=== PATIENT | male | born 1960 | race Caucasian/White ===

== ENCOUNTER 2019-06-26 09:23 | Inpatient (IN) | payer BC ==
[~2019-06-26] VITALS: Ht 181.6 cm; Wt 103.0 kg
[2019-06-26] VITALS (11 sets, daily range): BP systolic 116–133; BP diastolic 79–89
[~2019-06-26 09:23] MED LIST: AMLO5TAB10 PO; ASPI81TA50 PO; ATOR20TA58 PO; CETI10TA24 PO; CHOL40003 PO; CINN500C2 PO; CYAN25008 PO; DOCU100C28 PO; ESCITALOPRAM OX10 MG PO; FLUT9.9S NS; HYDROmorphone 2 MG/ML VIAL IV PRN; IV RINGERS,LACTATED 1000ML 1,000 ML IV SCH; L.AC1CAP6 PO; LIDOCAINE 1% PF 2 ML VIAL. ID PRN; LOSA1TAB22 PO; MAGN250T9 PO; METF500T16 PO; MORPHINE SULFATE 2 MG/ML VIAL. IV PRN; MULT-121 PO; OMEG100020 PO; OMEP20TA8 PO; ONDA4TAB12 PO; ONDANSETRON PF 4 MG/2 ML VIAL. IV PRN; PROCHLORPERAZINE 10 MG/2 ML VIAL. IV PRN; TRAZ-118 PO; cefOXitin SODIUM IV Push 2 GM VIAL. IVP ONE; fentaNYL PF VIAL 100 MCG/2 ML VIAL IV PRN
[2019-06-26] MEDS ORDERED: BUPIVACAINE-EPI 0.5%-1:200000 MPF 30 ML VIAL. ONE (10:38)
[2019-06-26 10:53] LABS: ALBUMIN 3.6 g/dL (3.4-5.0); ALBUMIN/GLOBULIN RATIO 1.1 (1.0-1.7); CALCIUM 8.7 mg/dL (8.5-10.1); CREATININE 0.7 mg/dL (0.7-1.3); GFR 116.7; POTASSIUM 3.5 mmol/L (3.5-5.1); TOTAL BILIRUBIN 0.4 mg/dL (0.2-1.0); TOTAL PROTEIN 6.9 g/dL (6.4-8.2)
[2019-06-26 11:03] LABS: BASO % 1 % (0-3); EOS # 0.1 x10^3/uL (0.0-0.7); EOS % 1 % (0-3); HEMATOCRIT 35.6 % (39.0-53.0); LYMPH # 1.4 x10^3/uL (1.0-4.8); LYMPH % 32 % (24-48); MEAN CORPUSCULAR HEMOGLOBIN 24 pg (25-35); MEAN CORPUSCULAR HGB CONC 31 g/dL (31-37); MEAN CORPUSCULAR VOLUME 76 fL (79-100); MONO # 0.5 x10^3/uL (0.0-1.1); MONO % 12 % (0-9); NEUT # 2.3 x10^3/uL (1.8-7.7); NEUT % 53 % (31-73); PLATELET COUNT 303 x10^3/uL (140-400); RED BLOOD COUNT 4.67 x10^6/uL (4.30-5.70); RED CELL DISTRIBUTION WIDTH 30.9 % (11.5-14.5); WHITE BLOOD COUNT 4.3 x10^3/uL (4.0-11.0)
--- NOTE | 2019-06-26 11:16 | PDOC ---
SURGICAL PROGRESS NOTE Subjective Pre-Op Note 58 yo M with suspected small bowel mass. TO OR for laparoscopic versus open small bowel resection. R/R/B/A d/w pt and pt's supportive family. Risks, including, but not limited to: bleeding, infection, damage to surrounding structures, risk of anesthesia, risk of open, risk of , risk of anastomotic leak. They appear to understand, their questions are answered and they elect to proceed. Office note H&P reviewed and unchanged. Vital Signs Vital Signs Date Time Temp Pulse Resp B/P (MAP) Pulse Ox O2 Delivery O2 Flow Rate FiO2 06/26/19 10:28 97.2 65 18 130/72 98 Room Air 97.2 Labs Laboratory Tests Test 06/26/19 10:20 06/26/19 10:32 06/26/19 10:40 White Blood Count 4.3 x10^3/uL (4.0-11.0) Red Blood Count 4.67 x10^6/uL (4.30-5.70) Hemoglobin 11.0 g/dL (13.0-17.5) Hematocrit 35.6 % (39.0-53.0) Mean Corpuscular Volume 76 fL (79-100) Mean Corpuscular Hemoglobin 24 pg (25-35) Mean Corpuscular Hemoglobin Concent 31 g/dL (31-37) Red Cell Distribution Width 30.9 % (11.5-14.5) Platelet Count 303 x10^3/uL (140-400) Neutrophils (%) (Auto) 53 % (31-73) Lymphocytes (%) (Auto) 32 % (24-48) Monocytes (%) (Auto) 12 % (0-9) Eosinophils (%) (Auto) 1 % (0-3) Basophils (%) (Auto) 1 % (0-3) Neutrophils # (Auto) 2.3 x10^3/uL (1.8-7.7) Lymphocytes # (Auto) 1.4 x10^3/uL (1.0-4.8) Monocytes # (Auto) 0.5 x10^3/uL (0.0-1.1) Eosinophils # (Auto) 0.1 x10^3/uL (0.0-0.7) Basophils # (Auto) 0.0 x10^3/uL (0.0-0.2) Glucose (Fingerstick) 101 mg/dL (70-99) Sodium Level 136 mmol/L (136-145) Potassium Level 3.5 mmol/L (3.5-5.1) Chloride Level 101 mmol/L (98-107) Carbon Dioxide Level 27 mmol/L (21-32) Anion Gap 8 (6-14) Blood Urea Nitrogen 13 mg/dL (8-26) Creatinine 0.7 mg/dL (0.7-1.3) Estimated GFR (Cockcroft-Gault) 116.7 BUN/Creatinine Ratio 19 (6-20) Glucose Level 106 mg/dL (70-99) Calcium Level 8.7 mg/dL (8.5-10.1) Total Bilirubin 0.4 mg/dL (0.2-1.0) Aspartate Amino Transf (AST/SGOT) 15 U/L (15-37) Alanine Aminotransferase (ALT/SGPT) 25 U/L (16-63) Alkaline Phosphatase 77 U/L (46-116) Total Protein 6.9 g/dL (6.4-8.2) Albumin 3.6 g/dL (3.4-5.0) Albumin/Globulin Ratio 1.1 (1.0-1.7) Laboratory Tests Test 06/26/19 10:20 06/26/19 10:32 06/26/19 10:40 White Blood Count 4.3 x10^3/uL (4.0-11.0) Red Blood Count 4.67 x10^6/uL (4.30-5.70) Hemoglobin 11.0 g/dL (13.0-17.5) Hematocrit 35.6 % (39.0-53.0) Mean Corpuscular Volume 76 fL (79-100) Mean Corpuscular Hemoglobin 24 pg (25-35) Mean Corpuscular Hemoglobin Concent 31 g/dL (31-37) Red Cell Distribution Width 30.9 % (11.5-14.5) Platelet Count 303 x10^3/uL (140-400) Neutrophils (%) (Auto) 53 % (31-73) Lymphocytes (%) (Auto) 32 % (24-48) Monocytes (%) (Auto) 12 % (0-9) Eosinophils (%) (Auto) 1 % (0-3) Basophils (%) (Auto) 1 % (0-3) Neutrophils # (Auto) 2.3 x10^3/uL (1.8-7.7) Lymphocytes # (Auto) 1.4 x10^3/uL (1.0-4.8) Monocytes # (Auto) 0.5 x10^3/uL (0.0-1.1) Eosinophils # (Auto) 0.1 x10^3/uL (0.0-0.7) Basophils # (Auto) 0.0 x10^3/uL (0.0-0.2) Glucose (Fingerstick) 101 mg/dL (70-99) Sodium Level 136 mmol/L (136-145) Potassium Level 3.5 mmol/L (3.5-5.1) Chloride Level 101 mmol/L (98-107) Carbon Dioxide Level 27 mmol/L (21-32) Anion Gap 8 (6-14) Blood Urea Nitrogen 13 mg/dL (8-26) Creatinine 0.7 mg/dL (0.7-1.3) Estimated GFR (Cockcroft-Gault) 116.7 BUN/Creatinine Ratio 19 (6-20) Glucose Level 106 mg/dL (70-99) Calcium Level 8.7 mg/dL (8.5-10.1) Total Bilirubin 0.4 mg/dL (0.2-1.0) Aspartate Amino Transf (AST/SGOT) 15 U/L (15-37) Alanine Aminotransferase (ALT/SGPT) 25 U/L (16-63) Alkaline Phosphatase 77 U/L (46-116) Total Protein 6.9 g/dL (6.4-8.2) Albumin 3.6 g/dL (3.4-5.0) Albumin/Globulin Ratio 1.1 (1.0-1.7) GAVIN SCALES MD Jun 26, 2019 11:16
[2019-06-26] MEDS ORDERED: ROCURONIUM 50 MG/5 ML VIAL. ONE (11:25)
[2019-06-26] MEDS ORDERED: fentaNYL PF VIAL 100 MCG/2 ML VIAL ONE ×2 (11:25→13:20)
[2019-06-26] MEDS ORDERED: LIDOCAINE 2% PF 5 ML VIAL. ONE (11:26)
[2019-06-26] MEDS ORDERED: ONDANSETRON PF 4 MG/2 ML VIAL. ONE (11:26)
[2019-06-26] MEDS ORDERED: DEXAMETHASONE SOD PHOS 4 MG/ML VIAL ONE (11:26)
[2019-06-26] MEDS ORDERED: PROPOFOL 20 ML IV ONE (11:26)
[2019-06-26] MEDS ORDERED: FAMOTIDINE 20 MG/2 ML VIAL ONE (11:26)
[2019-06-26] MEDS ORDERED: LIDOCAINE 2% TOPICAL JELLY 5GM TUBE. TP ONE ×2 (11:29→13:25)
[2019-06-26] MEDS ORDERED: INSULIN LISPRO 100 UNIT/ML 3ML VIAL for OP,RR ONLY. SQ PRN (11:45)
[2019-06-26] MEDS ORDERED: ePHEDrine PF IN SALINE 50 MG/10 ML SYRINGE. IV ONE (11:51)
[2019-06-26] MEDS ORDERED: DEXAMETHASONE SOD PHOS 20 MG/5 ML VIAL. ONE (12:21)
[2019-06-26] MEDS ORDERED: EPINEPHrine 1 MG/ML VIAL ONE (12:22)
[2019-06-26] MEDS ORDERED: BUPIVACAINE MPF 0.5% 30 ML VIAL. ONE (12:22)
[2019-06-26] MEDS ORDERED: GLYCOPYRROLATE 1 MG/5 ML VIAL. ONE (12:46)
[2019-06-26] MEDS ORDERED: NEOSTIGMINE METHYLSULFATE 5 MG/5 ML SYRINGE. ONE (12:46)
[2019-06-26] MEDS ORDERED: 0.9 % SODIUM CHLORIDE 10 ML DISP.SYRIN. IV PRN (13:00)
[2019-06-26] MEDS: IV NORMAL SALINE 1000ML BAG 1,000 ML IV SCH (13:00)
[2019-06-26] MEDS ORDERED: NALOXONE 0.4 MG/ML VIAL. IV PRN (13:00)
[2019-06-26] MEDS ORDERED: SEVOFLURANE 61 TO 120 MINUTES. IH ONE (13:12)
--- NOTE | 2019-06-26 13:12 | PDOC4 ---
OPERATIVE NOTE Date: Date: Jun 26, 2019 Pre-Op Diagnosis: Small bowel obstruction Post-Op Diagnosis: same, small bowel stricture x 2, favor crohn's Procedure Performed: laparoscopic assisted small bowel resection, appendectomy Surgeon: Enoch Scales Anesthesia Type: GETA plus local Blood Loss: 50 Specimans Obtained: small bowel segment, appendix Findings: dilated proximal small bowel, decompressed distal, normal liver, small palpable stricture of mid distal small bowel, inflammatory changes in 2 locations of small bowel. Complications: none Operative Note: After obtaining informed consent, patient was taken to OR, induced under GETA and prepped in the usual fashion. 5 mm port placed RUQ and RLQ, all under laparoscopic guidance. Abdominal cavity was explored and essentially unremarkable, except as noted above and obesity. Small bowel was visualized, but no obvious mass. Given this, an upper midline incision was made with cautery, wound protector placed and small bowel examined from ligament of treitz to terminal ileum. Two small strictured areas were noted in mid distal small bowel. NOE staplers were used to divide bowel proximal and distal to areas of concerns. Mesentery taken with ligasure. Side to side stapled anastomosis cr eated with NOE 75 and TA staplers. Oversewn with 3 0 vicryl and mesentery repaired with 3 0 chromic. Anastomosis noted to be patent, under no tension, completely viable and without evidence of leakage. Pathology was concerning, grossly, for inflammatory changes. Given concern for crohn's, the appendix was resected. Appendix grossly normal, but did have some chronic inflammatory changes around it. NOE was used to divide at base. Mesentery taken with ligasure. Appendix sent to pathology for evaluation. Fascia repaired with 0 vicryl and 0 looped PDS. Pneumoperitoneum reestablished and demonstrated no pathology. Copious irrigation. Ports removed without bleeding. Skin repaired with 3 0 vicryl and 4 0 monocryl. [place] left in midline wound. Dressing placed. Patient tolerated procedure well and sent to PACU in stable condition. All counts correct. Wound class is 2. GAVIN SCALES MD Jun 26, 2019 13:12
[2019-06-26] MEDS ORDERED: PROCHLORPERAZINE 10 MG/2 ML VIAL. ONE (13:20)
[2019-06-26] MEDS: IV RINGERS,LACTATED 1000ML 1,000 ML IV SCH ×2 (13:47→23:37)
[2019-06-26] MEDS: fentaNYL PF VIAL 100 MCG/2 ML VIAL IV PRN ×2 (13:56→14:17)
[2019-06-26] MEDS: MORPHINE SULFATE/PF 30 ML IV PRN (14:01)
--- NOTE | 2019-06-26 16:41 | NUR ---
received from recovery; drowsy was rating his pain 4-5 reinforced usage of film waxer and at bedside. winkler cath patent to dd patent with dariel/straw colored urine. ng to low intermittent suction patent with minimal brown . dressing to abdominal area is clean and dry. shadowed at the top of incisional area. history completed. may have ice chips
[2019-06-26 16:54] LABS: ANISOCYTOSIS MARKED; HYPOCHROMIA MOD; OVALOCYTES FEW; PLT ESTIMATE ADEQUATE (ADEQUATE); POLYCHROMASIA SLIGHT; TEAR DROP CELLS FEW
[2019-06-26] MEDS ORDERED: DEXTROSE 50% 25 GM / 50ML DISP.SYRIN. IV PRN (18:15)
--- NOTE | 2019-06-26 18:34 | NUR ---
DANGLED AND STOOD AT THE SIDE OF THE BED;TOLERATED WELL. REMAINS AT BEDSIDE. REGIONAL MARKETING DIRECTOR CONTROLLING PAIN AT THIS TIME. ng REMAINS EMPTY EXCEPT FOR TUBING. COFFEY PATENT WITH YELLOW URINE.
[2019-06-26] MEDS: INSULIN LISPRO 300 UNITS/3 ML VIAL. SQ SCH (23:57)
[2019-06-27] VITALS (8 sets, daily range): BP systolic 132–146; BP diastolic 82–95
[2019-06-27 00:07] LABS: HEMOGLOBIN A1C 4.8 % (4.8-5.6)
[2019-06-27 05:04] LABS: BASO % 0 % (0-3); EOS % 0 % (0-3); HEMATOCRIT 35.1 % (39.0-53.0); HEMOGLOBIN 11.1 g/dL (13.0-17.5); LYMPH # 0.8 x10^3/uL (1.0-4.8); LYMPH % 10 % (24-48); MEAN CORPUSCULAR HEMOGLOBIN 24 pg (25-35); MEAN CORPUSCULAR HGB CONC 32 g/dL (31-37); MEAN CORPUSCULAR VOLUME 76 fL (79-100); MONO # 0.7 x10^3/uL (0.0-1.1); MONO % 8 % (0-9); NEUT # 6.7 x10^3/uL (1.8-7.7); NEUT % 82 % (31-73); PLATELET COUNT 286 x10^3/uL (140-400); RED BLOOD COUNT 4.61 x10^6/uL (4.30-5.70); RED CELL DISTRIBUTION WIDTH 31.8 % (11.5-14.5); WHITE BLOOD COUNT 8.2 x10^3/uL (4.0-11.0)
[2019-06-27 05:19] LABS: CALCIUM 8.9 mg/dL (8.5-10.1); CREATININE 0.6 mg/dL (0.7-1.3); GFR 139.4; POTASSIUM 3.9 mmol/L (3.5-5.1)
[2019-06-27] MEDS: ENOXAPARIN 40 MG/0.4 ML SYRINGE. SQ SCH (05:54)
[2019-06-27] MEDS: INSULIN LISPRO 300 UNITS/3 ML VIAL. SQ SCH ×3 (06:00→17:23)
[2019-06-27] MEDS: IV RINGERS,LACTATED 1000ML 1,000 ML IV SCH ×2 (11:22→21:43)
[2019-06-27] MEDS: IV NORMAL SALINE 1000ML BAG 1,000 ML IV SCH (13:00)
--- NOTE | 2019-06-27 13:17 | PDOC ---
SURGICAL PROGRESS NOTE Subjective up in chair incisional pain cough Vital Signs Vital Signs Date Time Temp Pulse Resp B/P (MAP) Pulse Ox O2 Delivery O2 Flow Rate FiO2 06/27/19 11:06 91 16 143/95 (111) 96 Nasal Cannula 2.0 06/27/19 08:49 97.8 97.8 I&O Intake and Output 06/27/19 07:00 Intake Total 1160 ml Output Total 2175 ml Balance -1015 ml Intake Oral 60 ml IV Total 1100 ml Output Urine Total 1750 ml Drainage Total 400 ml Estimated Blood Loss 25 ml PATIENT HAS A COFFEY: No General: Alert, Oriented X3, Cooperative HEENT: Other (NG in place) Abdomen: Soft, Other (ND, dressing dry) Labs Laboratory Tests Test 06/26/19 10:20 06/26/19 10:32 06/26/19 10:40 06/26/19 13:40 White Blood Count 4.3 x10^3/uL (4.0-11.0) Red Blood Count 4.67 x10^6/uL (4.30-5.70) Hemoglobin 11.0 g/dL (13.0-17.5) Hematocrit 35.6 % (39.0-53.0) Mean Corpuscular Volume 76 fL (79-100) Mean Corpuscular Hemoglobin 24 pg (25-35) Mean Corpuscular Hemoglobin Concent 31 g/dL (31-37) Red Cell Distribution Width 30.9 % (11.5-14.5) Platelet Count 303 x10^3/uL (140-400) Neutrophils (%) (Auto) 53 % (31-73) Lymphocytes (%) (Auto) 32 % (24-48) Monocytes (%) (Auto) 12 % (0-9) Eosinophils (%) (Auto) 1 % (0-3) Basophils (%) (Auto) 1 % (0-3) Neutrophils # (Auto) 2.3 x10^3/uL (1.8-7.7) Lymphocytes # (Auto) 1.4 x10^3/uL (1.0-4.8) Monocytes # (Auto) 0.5 x10^3/uL (0.0-1.1) Eosinophils # (Auto) 0.1 x10^3/uL (0.0-0.7) Basophils # (Auto) 0.0 x10^3/uL (0.0-0.2) Platelet Estimate Adequate (ADEQUATE) Polychromasia Slight Hypochromasia Mod Anisocytosis Marked Tear Drop Cells Few Ovalocytes Few Hemoglobin A1c 4.8 % (4.8-5.6) Glucose (Fingerstick) 101 mg/dL (70-99) 128 mg/dL (70-99) Sodium Level 136 mmol/L (136-145) Potassium Level 3.5 mmol/L (3.5-5.1) Chloride Level 101 mmol/L (98-107) Carbon Dioxide Level 27 mmol/L (21-32) Anion Gap 8 (6-14) Blood Urea Nitrogen 13 mg/dL (8-26) Creatinine 0.7 mg/dL (0.7-1.3) Estimated GFR (Cockcroft-Gault) 116.7 BUN/Creatinine Ratio 19 (6-20) Glucose Level 106 mg/dL (70-99) Calcium Level 8.7 mg/dL (8.5-10.1) Total Bilirubin 0.4 mg/dL (0.2-1.0) Aspartate Amino Transf (AST/SGOT) 15 U/L (15-37) Alanine Aminotransferase (ALT/SGPT) 25 U/L (16-63) Alkaline Phosphatase 77 U/L (46-116) Total Protein 6.9 g/dL (6.4-8.2) Albumin 3.6 g/dL (3.4-5.0) Albumin/Globulin Ratio 1.1 (1.0-1.7) Test 06/26/19 17:12 06/26/19 23:36 06/27/19 04:40 06/27/19 11:58 Glucose (Fingerstick) 132 mg/dL (70-99) 112 mg/dL (70-99) 99 mg/dL (70-99) White Blood Count 8.2 x10^3/uL (4.0-11.0) Red Blood Count 4.61 x10^6/uL (4.30-5.70) Hemoglobin 11.1 g/dL (13.0-17.5) Hematocrit 35.1 % (39.0-53.0) Mean Corpuscular Volume 76 fL (79-100) Mean Corpuscular Hemoglobin 24 pg (25-35) Mean Corpuscular Hemoglobin Concent 32 g/dL (31-37) Red Cell Distribution Width 31.8 % (11.5-14.5) Platelet Count 286 x10^3/uL (140-400) Neutrophils (%) (Auto) 82 % (31-73) Lymphocytes (%) (Auto) 10 % (24-48) Monocytes (%) (Auto) 8 % (0-9) Eosinophils (%) (Auto) 0 % (0-3) Basophils (%) (Auto) 0 % (0-3) Neutrophils # (Auto) 6.7 x10^3/uL (1.8-7.7) Lymphocytes # (Auto) 0.8 x10^3/uL (1.0-4.8) Monocytes # (Auto) 0.7 x10^3/uL (0.0-1.1) Eosinophils # (Auto) 0.0 x10^3/uL (0.0-0.7) Basophils # (Auto) 0.0 x10^3/uL (0.0-0.2) Sodium Level 139 mmol/L (136-145) Potassium Level 3.9 mmol/L (3.5-5.1) Chloride Level 101 mmol/L (98-107) Carbon Dioxide Level 27 mmol/L (21-32) Anion Gap 11 (6-14) Blood Urea Nitrogen 7 mg/dL (8-26) Creatinine 0.6 mg/dL (0.7-1.3) Estimated GFR (Cockcroft-Gault) 139.4 Glucose Level 111 mg/dL (70-99) Calcium Level 8.9 mg/dL (8.5-10.1) Laboratory Tests Test 06/26/19 13:40 06/26/19 17:12 06/26/19 23:36 06/27/19 04:40 Glucose (Fingerstick) 128 mg/dL (70-99) 132 mg/dL (70-99) 112 mg/dL (70-99) White Blood Count 8.2 x10^3/uL (4.0-11.0) Red Blood Count 4.61 x10^6/uL (4.30-5.70) Hemoglobin 11.1 g/dL (13.0-17.5) Hematocrit 35.1 % (39.0-53.0) Mean Corpuscular Volume 76 fL (79-100) Mean Corpuscular Hemoglobin 24 pg (25-35) Mean Corpuscular Hemoglobin Concent 32 g/dL (31-37) Red Cell Distribution Width 31.8 % (11.5-14.5) Platelet Count 286 x10^3/uL (140-400) Neutrophils (%) (Auto) 82 % (31-73) Lymphocytes (%) (Auto) 10 % (24-48) Monocytes (%) (Auto) 8 % (0-9) Eosinophils (%) (Auto) 0 % (0-3) Basophils (%) (Auto) 0 % (0-3) Neutrophils # (Auto) 6.7 x10^3/uL (1.8-7.7) Lymphocytes # (Auto) 0.8 x10^3/uL (1.0-4.8) Monocytes # (Auto) 0.7 x10^3/uL (0.0-1.1) Eosinophils # (Auto) 0.0 x10^3/uL (0.0-0.7) Basophils # (Auto) 0.0 x10^3/uL (0.0-0.2) Sodium Level 139 mmol/L (136-145) Potassium Level 3.9 mmol/L (3.5-5.1) Chloride Level 101 mmol/L (98-107) Carbon Dioxide Level 27 mmol/L (21-32) Anion Gap 11 (6-14) Blood Urea Nitrogen 7 mg/dL (8-26) Creatinine 0.6 mg/dL (0.7-1.3) Estimated GFR (Cockcroft-Gault) 139.4 Glucose Level 111 mg/dL (70-99) Calcium Level 8.9 mg/dL (8.5-10.1) Test 06/27/19 11:58 Glucose (Fingerstick) 99 mg/dL (70-99) Assessment/Plan s/p SBR, appy await bowel function, continue NG today path pending BETHANY HERNANDEZ APRN Jun 27, 2019 13:17
[2019-06-27] MEDS: MORPHINE SULFATE/PF 30 ML IV PRN (17:31)
--- NOTE | 2019-06-27 23:14 | NUR ---
was sitting up in chair at the beginning of the shift. at bedside. ambulated to the door with stop at the bathroom voided moderate amount. ng remains patent with brownish liquid. dressing unchanged from previous shift. 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 states he is more uncomfortable today. explained about having a block on abdomen yesterday and has probably wore off at this time. denies passing flatus . abdomen is distended but soft.
[2019-06-28 01:53] VITALS: BP 164/100
[2019-06-28] MEDS: INSULIN LISPRO 300 UNITS/3 ML VIAL. SQ SCH ×4 (06:00→18:00)
[2019-06-28] MEDS: ENOXAPARIN 40 MG/0.4 ML SYRINGE. SQ SCH (06:08)
--- NOTE | 2019-06-28 06:23 | NUR ---
up to the bathroom to void at least 4x's this shift. states his pain ranges from 6-7; collections curator continues. abdominal dressing remains unchanged. states he "feels gas bubbles"; maybe I can get the ng out today." explained would have it clamped for 12-24 hrs prior to it coming out; verbalized understanding.
[2019-06-28 07:00] VITALS: BP 148/97
--- NOTE | 2019-06-28 08:48 | PDOC ---
SURGICAL PROGRESS NOTE Subjective Pt doing well, pain controlled, no N/V, no flatus but feels "rumbling" Vital Signs Vital Signs Date Time Temp Pulse Resp B/P (MAP) Pulse Ox O2 Delivery O2 Flow Rate FiO2 06/28/19 07:00 97.6 99 18 148/97 (114) 94 Nasal Cannula 3.0 97.6 I&O Intake and Output 06/28/19 07:00 Intake Total 1288 ml Output Total 1550 ml Balance -262 ml Intake Oral 100 ml Other 1188 ml Output Urine Total 950 ml Gastric Drainage Total 600 ml # Voids 2 General: Alert, Oriented X3, Cooperative, No acute distress Abdomen: Soft, No tenderness Labs Laboratory Tests Test 06/26/19 10:20 06/26/19 10:32 06/26/19 10:40 06/26/19 13:40 White Blood Count 4.3 x10^3/uL (4.0-11.0) Red Blood Count 4.67 x10^6/uL (4.30-5.70) Hemoglobin 11.0 g/dL (13.0-17.5) Hematocrit 35.6 % (39.0-53.0) Mean Corpuscular Volume 76 fL (79-100) Mean Corpuscular Hemoglobin 24 pg (25-35) Mean Corpuscular Hemoglobin Concent 31 g/dL (31-37) Red Cell Distribution Width 30.9 % (11.5-14.5) Platelet Count 303 x10^3/uL (140-400) Neutrophils (%) (Auto) 53 % (31-73) Lymphocytes (%) (Auto) 32 % (24-48) Monocytes (%) (Auto) 12 % (0-9) Eosinophils (%) (Auto) 1 % (0-3) Basophils (%) (Auto) 1 % (0-3) Neutrophils # (Auto) 2.3 x10^3/uL (1.8-7.7) Lymphocytes # (Auto) 1.4 x10^3/uL (1.0-4.8) Monocytes # (Auto) 0.5 x10^3/uL (0.0-1.1) Eosinophils # (Auto) 0.1 x10^3/uL (0.0-0.7) Basophils # (Auto) 0.0 x10^3/uL (0.0-0.2) Platelet Estimate Adequate (ADEQUATE) Polychromasia Slight Hypochromasia Mod Anisocytosis Marked Tear Drop Cells Few Ovalocytes Few Hemoglobin A1c 4.8 % (4.8-5.6) Glucose (Fingerstick) 101 mg/dL (70-99) 128 mg/dL (70-99) Sodium Level 136 mmol/L (136-145) Potassium Level 3.5 mmol/L (3.5-5.1) Chloride Level 101 mmol/L (98-107) Carbon Dioxide Level 27 mmol/L (21-32) Anion Gap 8 (6-14) Blood Urea Nitrogen 13 mg/dL (8-26) Creatinine 0.7 mg/dL (0.7-1.3) Estimated GFR (Cockcroft-Gault) 116.7 BUN/Creatinine Ratio 19 (6-20) Glucose Level 106 mg/dL (70-99) Calcium Level 8.7 mg/dL (8.5-10.1) Total Bilirubin 0.4 mg/dL (0.2-1.0) Aspartate Amino Transf (AST/SGOT) 15 U/L (15-37) Alanine Aminotransferase (ALT/SGPT) 25 U/L (16-63) Alkaline Phosphatase 77 U/L (46-116) Total Protein 6.9 g/dL (6.4-8.2) Albumin 3.6 g/dL (3.4-5.0) Albumin/Globulin Ratio 1.1 (1.0-1.7) Test 06/26/19 17:12 06/26/19 23:36 06/27/19 04:40 06/27/19 11:58 Glucose (Fingerstick) 132 mg/dL (70-99) 112 mg/dL (70-99) 99 mg/dL (70-99) White Blood Count 8.2 x10^3/uL (4.0-11.0) Red Blood Count 4.61 x10^6/uL (4.30-5.70) Hemoglobin 11.1 g/dL (13.0-17.5) Hematocrit 35.1 % (39.0-53.0) Mean Corpuscular Volume 76 fL (79-100) Mean Corpuscular Hemoglobin 24 pg (25-35) Mean Corpuscular Hemoglobin Concent 32 g/dL (31-37) Red Cell Distribution Width 31.8 % (11.5-14.5) Platelet Count 286 x10^3/uL (140-400) Neutrophils (%) (Auto) 82 % (31-73) Lymphocytes (%) (Auto) 10 % (24-48) Monocytes (%) (Auto) 8 % (0-9) Eosinophils (%) (Auto) 0 % (0-3) Basophils (%) (Auto) 0 % (0-3) Neutrophils # (Auto) 6.7 x10^3/uL (1.8-7.7) Lymphocytes # (Auto) 0.8 x10^3/uL (1.0-4.8) Monocytes # (Auto) 0.7 x10^3/uL (0.0-1.1) Eosinophils # (Auto) 0.0 x10^3/uL (0.0-0.7) Basophils # (Auto) 0.0 x10^3/uL (0.0-0.2) Sodium Level 139 mmol/L (136-145) Potassium Level 3.9 mmol/L (3.5-5.1) Chloride Level 101 mmol/L (98-107) Carbon Dioxide Level 27 mmol/L (21-32) Anion Gap 11 (6-14) Blood Urea Nitrogen 7 mg/dL (8-26) Creatinine 0.6 mg/dL (0.7-1.3) Estimated GFR (Cockcroft-Gault) 139.4 Glucose Level 111 mg/dL (70-99) Calcium Level 8.9 mg/dL (8.5-10.1) Test 06/27/19 16:25 06/27/19 22:39 06/28/19 06:01 Glucose (Fingerstick) 89 mg/dL (70-99) 88 mg/dL (70-99) 103 mg/dL (70-99) Laboratory Tests Test 06/27/19 11:58 06/27/19 16:25 06/27/19 22:39 06/28/19 06:01 Glucose (Fingerstick) 99 mg/dL (70-99) 89 mg/dL (70-99) 88 mg/dL (70-99) 103 mg/dL (70-99) Problem List s/p SBR doing well clamp NGT and try clears GAVIN SCALES MD Jun 28, 2019 08:48
[2019-06-28] MEDS: IV RINGERS,LACTATED 1000ML 1,000 ML IV SCH ×2 (08:58→22:45)
--- NOTE | 2019-06-28 09:00 | NUR ---
Orders to clamp NG tube. Pt verbalized understanding. Started on clear liquids. Cont. monitor.
[2019-06-28 12:00] VITALS: BP 137/94
[2019-06-28] MEDS ORDERED: traZODone 50 MG TABLET. PO PRN (13:00)
[2019-06-28] MEDS: IV NORMAL SALINE 1000ML BAG 1,000 ML IV SCH (13:00)
[2019-06-28] MEDS: CETIRIZINE HCL 10 MG TABLET. PO SCH (13:56)
[2019-06-28] MEDS: LOSARTAN POTASSIUM 50 MG TABLET. PO SCH (13:57)
[2019-06-28] MEDS: hydroCHLOROthiazide 25 MG TABLET PO SCH (13:57)
[2019-06-28] MEDS: amLODIPine BESYLATE 5 MG TABLET PO SCH (13:58)
[2019-06-28] MEDS: MORPHINE SULFATE/PF 30 ML IV PRN (14:45)
--- NOTE | 2019-06-28 14:45 | NUR ---
Pt took couple sips cranberry juice, chicken broth and tea at lunch time. Present time feeling nausea and having reflux. NG tube restarted to low suction. Cold wash clothes placed forehead. Cont. monitor.
[2019-06-28 15:15] VITALS: BP 133/92
[2019-06-28] MEDS: PANTOPRAZOLE 40 MG TABLET.DR. PO SCH (16:34)
[2019-06-28] MEDS: ONDANSETRON PF 4 MG/2 ML VIAL. IVP PRN ×2 (16:34→22:42)
[2019-06-28] MEDS: metFORMIN 500 MG TABLET PO SCH (17:00)
[2019-06-28 18:34] VITALS: BP 131/88
[2019-06-28] MEDS: ATORVASTATIN CALCIUM 20 MG TABLET PO SCH (20:27)
[2019-06-28 23:00] VITALS: BP 116/87
[2019-06-29 03:00] VITALS: BP 122/82
--- NOTE | 2019-06-29 04:30 | NUR ---
pt stated had right sharp pain that comes and go stated he thinks he streched his body the wrong way stated nausea much better @ this time
[2019-06-29] MEDS: ONDANSETRON PF 4 MG/2 ML VIAL. IVP PRN ×2 (04:51→16:18)
[2019-06-29] MEDS: ENOXAPARIN 40 MG/0.4 ML SYRINGE. SQ SCH (05:49)
[2019-06-29] MEDS: INSULIN LISPRO 300 UNITS/3 ML VIAL. SQ SCH ×4 (06:00→18:00)
[2019-06-29 06:17] VITALS: BP 125/88
[2019-06-29] MEDS: PANTOPRAZOLE 40 MG TABLET.DR. PO SCH (07:30)
[2019-06-29] MEDS: MORPHINE SULFATE/PF 30 ML IV PRN (07:33)
--- NOTE | 2019-06-29 07:59 | NUR ---
Still c/o right lower quadrant pain rating pain at "7". Ambulated to bathroom and voided. No flatus. Up in chair and nauseated. NG hooked up to low suction. Cont. monitor.
[2019-06-29] MEDS: metFORMIN 500 MG TABLET PO SCH ×2 (08:00→17:00)
--- NOTE | 2019-06-29 08:21 | PDOC ---
SURGICAL PROGRESS NOTE Subjective Pt with c/o RLQ abd pain, beginning last night, nausea, prompting NGT hooked back up, no flatus, but feels rumbling Vital Signs Vital Signs Date Time Temp Pulse Resp B/P (MAP) Pulse Ox O2 Delivery O2 Flow Rate FiO2 06/29/19 07:33 Room Air 06/29/19 06:17 98.2 102 20 125/88 (100) 96 2.0 98.2 I&O Intake and Output 06/29/19 07:00 Intake Total 210 ml Output Total 100 ml Balance 110 ml Intake Oral 210 ml Gastric Drainage Total 100 ml # Voids 6 General: Alert, Oriented X3, Cooperative, moderate distress Abdomen: Soft, Other (TTP RLQ, left no peritoneal signs) Labs Laboratory Tests Test 06/27/19 11:58 06/27/19 16:25 06/27/19 22:39 06/28/19 06:01 Glucose (Fingerstick) 99 mg/dL (70-99) 89 mg/dL (70-99) 88 mg/dL (70-99) 103 mg/dL (70-99) Test 06/28/19 11:36 06/28/19 17:17 06/28/19 23:48 06/29/19 05:41 Glucose (Fingerstick) 101 mg/dL (70-99) 96 mg/dL (70-99) 93 mg/dL (70-99) 119 mg/dL (70-99) Laboratory Tests Test 06/28/19 11:36 06/28/19 17:17 06/28/19 23:48 06/29/19 05:41 Glucose (Fingerstick) 101 mg/dL (70-99) 96 mg/dL (70-99) 93 mg/dL (70-99) 119 mg/dL (70-99) Problem List s/p small bowel resection will check labs and KUB, cont pain control GAVIN SCALES MD Jun 29, 2019 08:20
--- NOTE | 2019-06-29 08:32 | NUR ---
Return back to bed still feeling nausea and abdominal pain. Dr. Lala aware and ordered Abdomen supine and upright test this am.
[2019-06-29] MEDS: hydroCHLOROthiazide 25 MG TABLET PO SCH (09:00)
[2019-06-29] MEDS: CETIRIZINE HCL 10 MG TABLET. PO SCH (09:00)
[2019-06-29] MEDS: LOSARTAN POTASSIUM 50 MG TABLET. PO SCH (09:00)
[2019-06-29] MEDS: CITALOPRAM 20 MG TABLET. PO SCH (09:00)
[2019-06-29] MEDS: amLODIPine BESYLATE 5 MG TABLET PO SCH (09:00)
[2019-06-29 09:30] LABS: HEMATOCRIT 35.5 % (39.0-53.0); HEMOGLOBIN 11.1 g/dL (13.0-17.5); RED BLOOD COUNT 4.63 x10^6/uL (4.30-5.70); RED CELL DISTRIBUTION WIDTH 32.1 % (11.5-14.5); WHITE BLOOD COUNT 8.1 x10^3/uL (4.0-11.0)
--- NOTE | 2019-06-29 09:39 | RAD ---
AP view of the abdomen Clinical indications: Abdominal pain COMPARISON: None available. FINDINGS: There is diffuse dilatation of small bowel with relative paucity of air within the colon. These findings are consistent with a small bowel obstruction. NG tube is in place and the tip is seen within the proximal body of the stomach. The proximal side port is seen at the level of the gastric cardia. No free intraperitoneal air is seen. Levoscoliosis is seen. IMPRESSION: Small bowel obstruction. Electronically signed by: Sumeet Goodwin MD (06/29/2019 9:36 AM) [facility] [place]
[2019-06-29 10:16] LABS: ALBUMIN 2.8 g/dL (3.4-5.0); ALBUMIN/GLOBULIN RATIO 0.8 (1.0-1.7); CALCIUM 8.7 mg/dL (8.5-10.1); CREATININE 0.7 mg/dL (0.7-1.3); GFR 116.7; POTASSIUM 3.5 mmol/L (3.5-5.1); TOTAL BILIRUBIN 0.5 mg/dL (0.2-1.0); TOTAL PROTEIN 6.3 g/dL (6.4-8.2)
[2019-06-29] MEDS: IV RINGERS,LACTATED 1000ML 1,000 ML IV SCH ×3 (11:06→22:30)
[2019-06-29 11:16] VITALS: BP 130/85
[2019-06-29] MEDS: IV NORMAL SALINE 1000ML BAG 1,000 ML IV SCH (13:00)
--- NOTE | 2019-06-29 13:45 | NUR ---
Ambulated down the hallway and return back to bed. Still has some stomach pain but much better than this morning. Has had 2 episodes flatulence. NG hooked up to low suction. Side rails up x's 2 with call light and TRADES HELPER button within reach. Cont. monitor.
[2019-06-29 15:15] VITALS: BP 124/83
--- NOTE | 2019-06-29 15:32 | NUR ---
Resting quietly in bed. No c/o at this time. VS stable. Cont. monitor.
[2019-06-29 18:22] VITALS: BP 145/94
[2019-06-29] MEDS: ATORVASTATIN CALCIUM 20 MG TABLET PO SCH (21:00)
[2019-06-30] VITALS (8 sets, daily range): BP systolic 122–159; BP diastolic 85–104
[2019-06-30] MEDS: INSULIN LISPRO 300 UNITS/3 ML VIAL. SQ SCH ×4 (05:55→16:40)
[2019-06-30] MEDS: ENOXAPARIN 40 MG/0.4 ML SYRINGE. SQ SCH (05:55)
[2019-06-30] MEDS: MORPHINE SULFATE/PF 30 ML IV PRN (06:13)
[2019-06-30] MEDS: PANTOPRAZOLE 40 MG TABLET.DR. PO SCH (07:30)
[2019-06-30] MEDS: metFORMIN 500 MG TABLET PO SCH ×2 (08:00→16:34)
[2019-06-30] MEDS: IV RINGERS,LACTATED 1000ML 1,000 ML IV SCH ×2 (08:59→17:00)
[2019-06-30] MEDS: CETIRIZINE HCL 10 MG TABLET. PO SCH (09:00)
[2019-06-30] MEDS: CITALOPRAM 20 MG TABLET. PO SCH (09:00)
[2019-06-30] MEDS: hydroCHLOROthiazide 25 MG TABLET PO SCH (09:00)
[2019-06-30] MEDS: LOSARTAN POTASSIUM 50 MG TABLET. PO SCH (09:00)
[2019-06-30] MEDS: amLODIPine BESYLATE 5 MG TABLET PO SCH (09:00)
--- NOTE | 2019-06-30 10:00 | NUR ---
Ambulated to bathroom with steady gait. Still passing flatus and abdomen soft. NG still on low suction. Feeling better today. Up in chair. Cont. monitor.
--- NOTE | 2019-06-30 11:07 | PATHOLOGY ---
[facility] Accession Number: [id number] . 01 Material submitted: . PART A: small bowel - SMALL BOWEL PART B: appendix - APPENDIX . 01 Clinical history: . SBO . 02 Frozen section diagnosis: . INTRAOPERATIVE CONSULTATION WITH GROSS IMPRESSION: (Dr. Wicho Calhoun) . A. Segment of small intestine and attached mesentery, small bowel segmental resection: - Short segmental foci of erythema, granularity, slight thickening of small bowel wall and slight constriction of small bowel identified within proximal and distal aspects of the specimen. - Margins of resection grossly appear normal. . The results are displayed to Dr. Lala in the operating room. The specimen is fixed in formalin prior to additional sectioning. (JPM:mml/pit; 06/26/2019) . . GROSS DESCRIPTION: A. Received fresh for intraoperative consultation and is designated, "small bowel double stitch distal, single stitch at areas of concern" is a C-shaped segment of small intestine which measures approximately 51.0 cm in length and is up to approximately 3.0 cm in diameter. The attached mesentery measures up to 7.5 cm in depth. The segment is stapled closed at both ends. There is a double suture attached at the distal end. The serosa is pink-brown and hyperemic. There is a single stitch attached to the serosa approximately 7.0 cm from the distal margin. This appears to be on the distal side of a slight area of constriction of the small bowel, which measures approximately 1.7 cm in diameter. There is an additional single suture attached approximately 6.7 cm from the proximal margin. This is on the proximal side of a small area of constriction. The mesentery is yellow and glistening and shows focal hemorrhage. The segment is opened along the antimesenteric aspect. There is a nearly circumferential area of erythema, granularity, and slight thickening of the small bowel wall of the proximal portion of the segment, which measures approximately 1.5 cm in length. There are two short segments of erythema, granularity, and mild thickening of the small bowel wall of the distal portion of the segment. Each of these measures approximately 1.5 cm in length. The closest of these is approximately 3.0 cm from the distal margin. These two foci are by a small segment of normal mucosa measuring up to 2.0 cm in length. (JPM:mml/pit; 06/26/2019) . . . Gross consultation performed at [facility], [address] [facility] [place] [address]. MAGDALENE/EPIFANIO . 02 Diagnosis: A. 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 SEE COMMENT. - Reactive changes of mesenteric lymph node. - Gastric heterotopia, focal. . B. Appendix, appendectomy: - Fibrous obliteration of appendiceal lumen. ([facility] 06[facility]) [facility] 06/29/2019 1355 Local . 02 Comment: Sections from the segmental foci of mild constriction and thickening of the small bowel wall reveal an atypical lymphoid proliferation primarily involving the mucosa and submucosa. The atypical lymphoid infiltrate has a follicular architecture and is composed predominantly of small cleaved lymphocytes. Some of the follicles have a few admixed large non-cleaved cells. A panel of immunoperoxidase stains is obtained on block A3 and yields the following results: . CD20: Atypical lymphoid infiltrate positive CD3: Atypical lymphoid infiltrate negative; small lymphocytes within interfollicular areas positive CD5: Atypical lymphoid infiltrate negative; small lymphocytes within interfollicular areas positive CD10: Atypical lymphoid infiltrate positive BCL-2: Atypical lymphoid infiltrate positive BCL-6: Atypical lymphoid infiltrate positive CD23: Dendritic cell meshwork positive, frequently about periphery of neoplastic follicles Cyclin D1: Atypical lymphoid infiltrate negative MUM-1: Atypical lymphoid infiltrate negative Ki-67: Low proliferation index within neoplastic follicles . The morphologic and immunophenotypic findings are supportive of the diagnosis of focal segmental involvement by low-grade follicular lymphoma, Grade 1. 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 Systemic follicular lymphoma still needs to be excluded. There appears to be lymphomatous involvement of the distal margin. The proximal margin is negative for tumor. A section of a mesenteric lymph node shows reactive changes and does not appear to be involved by follicular lymphoma. . The case is also examined by Dr. Yi, hematopathologist, who concurs with the diagnosis. The case is discussed with Dr. Lala on 06/30/2019 at 10:30 AM. (JPM:[facility] 06/[facility]) . Special stains performed all on A3 are: Immunoperoxidase for CD20, CD3, CD5, CD10, BCL-2, BCL-6, CD23, Cyclin D1, MUM-1, Ki-67 . 02 Electronically signed: . Wicho Calhoun MD, Pathologist NPI- [id number] . 01 Gross description: . A. PLEASE SEE GROSS DESCRIPTION FOR GROSS CONSULTATION . A. [employer] Superintendent sections are submitted as follows: . A1: Distal margin A2: Proximal margin A3: Area near distal margin A4: Area closest proximal margin A5: Area distal A4 A6: Bisected lymph node at mesenteric margin . B. The specimen is received in formalin, labeled "Jone Conte, appendix" and consists of an appendix measuring 4.5 cm in length and up to 0.4 cm in diameter with mesoappendix measuring 1.5 cm thick. The serosa is pink-redman smooth shiny. The margin is closed with a line of ruth and inked black. Sectioning reveals no apparent lumen. The appendix is entirely submitted in B1-B2. (SDY; 06/27/2019) [facility] 06/29/2019 1221 Local . 02 Pathologist provided ICD-10: C82.89, K38.8 . 02 CPT . 614189, 443025, 649085, P45735, [id number] Specimen Comment: A courtesy copy of this report has been sent to [phone], [phone] Specimen Comment: [id number] Specimen Comment: Report sent to / DR LOPES Performed at: 01 [facility] [address], [place] [id number] MD Pablito Cates MD Phone: [phone] Performed at: 02 [facility] [address] [place], [place] [id number] MD Wicho Calhoun MD Phone: [phone]
--- NOTE | 2019-06-30 12:31 | PDOC ---
SURGICAL PROGRESS NOTE Subjective feels better no n/v + flatus Vital Signs Vital Signs Date Time Temp Pulse Resp B/P (MAP) Pulse Ox O2 Delivery O2 Flow Rate FiO2 06/30/19 11:00 98.3 95 18 159/99 (119) 92 Nasal Cannula 2.0 98.3 I&O Intake and Output 06/30/19 07:00 Output Total 450 ml Balance -450 ml Gastric Drainage Total 450 ml # Voids 6 General: Alert, Oriented X3, Cooperative HEENT: Other (ng in place) Abdomen: Soft, Other (dressings dry) Labs Laboratory Tests Test 06/28/19 17:17 06/28/19 23:48 06/29/19 05:41 06/29/19 09:00 Glucose (Fingerstick) 96 mg/dL (70-99) 93 mg/dL (70-99) 119 mg/dL (70-99) White Blood Count 8.1 x10^3/uL (4.0-11.0) Red Blood Count 4.63 x10^6/uL (4.30-5.70) Hemoglobin 11.1 g/dL (13.0-17.5) Hematocrit 35.5 % (39.0-53.0) Mean Corpuscular Volume 77 fL (79-100) Mean Corpuscular Hemoglobin 24 pg (25-35) Mean Corpuscular Hemoglobin Concent 31 g/dL (31-37) Red Cell Distribution Width 32.1 % (11.5-14.5) Platelet Count 258 x10^3/uL (140-400) Sodium Level 138 mmol/L (136-145) Potassium Level 3.5 mmol/L (3.5-5.1) Chloride Level 100 mmol/L (98-107) Carbon Dioxide Level 30 mmol/L (21-32) Anion Gap 8 (6-14) Blood Urea Nitrogen 12 mg/dL (8-26) Creatinine 0.7 mg/dL (0.7-1.3) Estimated GFR (Cockcroft-Gault) 116.7 BUN/Creatinine Ratio 17 (6-20) Glucose Level 108 mg/dL (70-99) Calcium Level 8.7 mg/dL (8.5-10.1) Total Bilirubin 0.5 mg/dL (0.2-1.0) Aspartate Amino Transf (AST/SGOT) 11 U/L (15-37) Alanine Aminotransferase (ALT/SGPT) 17 U/L (16-63) Alkaline Phosphatase 68 U/L (46-116) Total Protein 6.3 g/dL (6.4-8.2) Albumin 2.8 g/dL (3.4-5.0) Albumin/Globulin Ratio 0.8 (1.0-1.7) Test 06/29/19 11:05 06/30/19 00:01 06/30/19 05:52 Glucose (Fingerstick) 89 mg/dL (70-99) 92 mg/dL (70-99) 99 mg/dL (70-99) Laboratory Tests Test 06/30/19 00:01 06/30/19 05:52 Glucose (Fingerstick) 92 mg/dL (70-99) 99 mg/dL (70-99) Assessment/Plan clamp NG oncology consult--path noted lymphoma BETHANY HERNANDEZ [employer]ARKER Jun 30, 2019 12:30
--- NOTE | 2019-06-30 12:45 | NUR ---
NG clamped per order. Still up in chair watching TV. Cont. monitor.
[2019-06-30] MEDS: IV NORMAL SALINE 1000ML BAG 1,000 ML IV SCH (13:00)
[2019-06-30] MEDS ORDERED: POLYVINYL ALCOHOL 1.4% OPHTH SOLUTION 15ML BOTTLE. OU PRN (16:15)
--- NOTE | 2019-06-30 16:17 | NUR ---
Doing well, no nausea. Ambulated to bathroom and back to chair on his own. Steady gait. RA. Used OPHTHALMIC MEDICAL TECHNOLOGIST less this last 4 hours. Cont. monitor.
--- NOTE | 2019-06-30 17:20 | NUR ---
Pt transferred to room 446 to 414 by w/c. Oriented to room and controls. Side rails up x's 2 with call light in reach. No c/o at this time.
--- NOTE | 2019-06-30 17:26 | PDOC2 ---
CONSULT Date of Consult Date of Consult DATE: 06/30/19 TIME: 17:17 HEMATOLOGY ONCOLOGY CONSULTATION REQUESTING PHYSICIAN: General surgery REASON FOR CONSULTATION: Follicular lymphoma HISTORY OF PRESENT ILLNESS: The patient is a 58-year-old man who had iron deficient anemia, it was acute, severe, with a hemoglobin of 6, assoc with dyspnea, improved with transfusion and IV iron, worsened due to small bowel follicular lymphoma that was noted w/ e/o small bowel obstruction and on 26 June 2019 he had small bowel resection and pathology showed low-grade follicular grade 1. Distal margin involvement likely with low Ki-67 duodenal type. PAST MEDICAL HISTORY: Vision loss Partial dentures Impaired fasting glucose Depression Hypertension Hyperlipidemia Insomnia History of tobacco Possible sleep apnea Obesity GERD Scoliosis Iron deficient anemia with prior IV iron small bowel follicular lymphoma grade 1 SURGERIES: [place] teeth excision, of 5 wisdom teeth Small bowel resection Tonsillectomy Cardiac catheter Knee scope ALL: Iodine, penicillin, shellfish MEDS: see attached list FAMILY HISTORY: His father possibly had cancer and did of a blood clot in 1976 SOCIAL HISTORY: Quit tobacco in 2013, no alcohol, not since August 2018, , one stepdaughter REVIEW OF SYSTEMS: A 10-point review of system was positive for nausea, bowel changes postop, shortness of air related to anemia, fever 2 days before surgery, weight loss due to no food since last Wednesday, warm spells at night but not complete night sweats, had since he was a kid otherwise rest of the 10 pt system review is negative. PHYSICAL EXAMINATION: GENERAL APPEARANCE: WN, WD, in NAD, has NG tube in, clamped VITAL SIGNS: vitals reviewed HEAD: Atraumatic, normocephalic. NECK: Supple. nl ROM. no LAD. CHEST: Bilaterally symmetrical, on RA w/o resp distress. On O2. ABDOMEN: Soft, nontender. nondist. post op. CENTRAL NERVOUS SYSTEM: No focal deficits. A&Ox3 SKIN: No rashes or obvious lesions. EXT: no c/c/e PSYCHOLOGIC: pleasant mood and affect LABS: White count 8.1, hemoglobin 11.1, platelets 258, MCV of 77 Creatinine 0.7 CEA 1.0 RADS: Abdominal x-ray showed small bowel obstruction Path: Small bowel resection 26 June 2019 showed focal segment involvement by low-grade follicular lymphoma with reactive mesenteric lymph node and focal gastric heterotopia, follicular lymphoma is duodenal type, with low Ki- 67 and possible distal margin involvement Case discussed w/ pt, [facility], including labs and radiology, please see note for summary details. A/P: He is a 58-year-old man with new diagnosis of low-grade follicular lymphoma noted at small bowel resection Iron deficient anemia: Suspect it was related to the bowel involvement of lymphoma and do suspect it should improve after IV iron and surgical resection Follicular lymphoma: Can get staging a PET scan as an outpatient, have ordered bone marrow biopsy for Wednesday if he is still here for staging, we'll also check LDH, hepatitis B and C serology, beta-2 microglobulin, SPEP with WENDIE and uric acid, as we will be moving our office soon so we may have him follow-up with Dr. Gurrola in [place] who is one of our lymphoma experts Disposition: After continued clinical improvement, we will follow-up with him as an outpatient as needed for further imaging and follow-up and treatment planning once staging is complete Thank you kindly for this consultation and please do not hesitate to call with any further questions, will follow. Current Medications Current Medications Current Medications Ondansetron HCl (Zofran) 4 mg PRN Q6HRS PRN IV NAUSEA/VOMITING; Start 06/26/19 at 07:00; Stop 06/27/19 at 06:59; Status DC Fentanyl Citrate (Fentanyl 2ml Vial) 25 mcg PRN Q5MIN PRN IV MILD PAIN 1-3; Start 06/26/19 at 07:00; Stop 06/27/19 at 06:59; Status DC Fentanyl Citrate (Fentanyl 2ml Vial) 50 mcg PRN Q5MIN PRN IV MODERATE TO SEVERE PAIN Last administered on 06/26/19at 14:17; Start 06/26/19 at 07:00; Stop 06/27/19 at 06:59; Status DC Morphine Sulfate (Morphine Sulfate) 1 mg PRN Q10MIN PRN IV SEVERE PAIN 7-10; Start 06/26/19 at 07:00; Stop 06/27/19 at 06:59; Status DC Ringer's Solution 1,000 ml @ 30 mls/hr Q24H IV Last administered on 06/26/19at 10:36; Start 06/26/19 at 07:00; Stop 06/26/19 at 18:59; Status DC Lidocaine HCl (Xylocaine-Mpf 1% 2ml Vial) 2 ml PRN 1X PRN ID PRIOR TO IV START; Start 06/26/19 at 07:00; Stop 06/27/19 at 06:59; Status DC Hydromorphone HCl (Dilaudid) 0.5 mg PRN Q10MIN PRN IV SEV PAIN, Second choice; Start 06/26/19 at 07:00; Stop 06/27/19 at 06:59; Status DC Prochlorperazine Edisylate (Compazine) 5 mg PACU PRN PRN IV NAUSEA, MRX1 Last administered on 06/26/19at 13:55; Start 06/26/19 at 07:00; Stop 06/27/19 at 06:59; Status DC Cefoxitin Sodium (Mefoxin) 2 gm ONCE ONCE IVP ; Start 06/26/19 at 06:00; Stop 06/26/19 at 06:01; Status DC Bupivacaine HCl/ Epinephrine Bitart (Sensorcain-Epi 0.5%-1:855035 Mpf) 30 ml STK-MED ONCE .ROUTE Last administered on 06/26/19at 11:50; Start 06/26/19 at 10:38; Stop 06/26/19 at 10:39; Status DC Fentanyl Citrate (Fentanyl 2ml Vial) 100 mcg STK-MED ONCE .ROUTE ; Start 06/26/19 at 11:25; Stop 06/26/19 at 11:26; Status DC Rocuronium [place] (Zemuron) 50 mg STK-MED ONCE .ROUTE ; Start 06/26/19 at 11:25; Stop 06/26/19 at 11:26; Status DC Famotidine (Pepcid Vial) 20 mg STK-MED ONCE .ROUTE ; Start 06/26/19 at 11:26; Stop 06/26/19 at 11:27; Status DC Ondansetron HCl (Zofran) 4 mg STK-MED ONCE .ROUTE ; Start 06/26/19 at 11:26; Stop 06/26/19 at 11:27; Status DC Propofol 20 ml @ As Directed STK-MED ONCE IV ; Start 06/26/19 at 11:26; Stop 06/26/19 at 11:27; Status DC Lidocaine HCl (Lidocaine Pf 2% Vial) 5 ml STK-MED ONCE .ROUTE ; Start 06/26/19 at 11:26; Stop 06/26/19 at 11:27; Status DC Dexamethasone Sodium Phosphate (Decadron) 4 mg STK-MED ONCE .ROUTE ; Start 06/26/19 at 11:26; Stop 06/26/19 at 11:27; Status DC Lidocaine HCl (Xylocaine 2% Topical 5gm Tube) 5 luiz STK-MED ONCE TP ; Start 06/26/19 at 11:29; Stop 06/26/19 at 11:29; Status DC Insulin Human Lispro (HumaLOG VIAL for OP,RR ONLY) 0-10 units PRN Q1HR PRN SQ PER PROTOCOL Last administered on 06/26/19at 13:59; Start 06/26/19 at 11:45; Stop 06/27/19 at 11:44; Status DC Ephedrine Sulfate (ePHEDrine PF IN SALINE SYRINGE) 50 mg STK-MED ONCE IV ; Start 06/26/19 at 11:51; Stop 06/26/19 at 11:51; Status DC Dexamethasone Sodium Phosphate (Decadron) 20 mg STK-MED ONCE .ROUTE ; Start 06/26/19 at 12:21; Stop 06/26/19 at 12:22; Status DC Bupivacaine HCl (Sensorcaine Mpf 0.5%) 30 ml STK-MED ONCE .ROUTE ; Start 06/26/19 at 12:22; Stop 06/26/19 at 12:22; Status DC Epinephrine HCl (Adrenalin) 1 mg STK-MED ONCE .ROUTE ; Start 06/26/19 at 12:22; Stop 06/26/19 at 12:22; Status DC Glycopyrrolate (Robinul) 1 mg STK-MED ONCE .ROUTE ; Start 06/26/19 at 12:46; Stop 06/26/19 at 12:46; Status DC Neostigmine [place] (Neostigmine Methylsulfate) 5 mg STK-MED ONCE .ROUTE ; Start 06/26/19 at 12:46; Stop 06/26/19 at 12:46; Status DC Enoxaparin Sodium (Lovenox 40mg Syringe) 40 mg Q24H SQ Last administered on 06/30/19at 05:55; Start 06/27/19 at 06:00 Sodium Chloride (Normal Saline Flush) 3 ml QSHIFT PRN IV AFTER MEDS AND BLOOD DRAWS; Start 06/26/19 at 13:00 Ringer's Solution 1,000 ml @ 100 mls/hr Q10H IV Last administered on 06/30/19at 08:59; Start 06/26/19 at 13:00 Naloxone HCl (Narcan) 0.4 mg PRN Q2MIN PRN IV SEE INSTRUCTIONS; Start 06/26/19 at 13:00 Sodium Chloride 1,000 ml @ 25 mls/hr Q24H IV ; Start 06/26/19 at 13:00 Morphine Sulfate 30 ml @ 0 mls/hr CONT PRN PRN IV PER PROTOCOL Last administ ered on 06/30/19at 06:13; Start 06/26/19 at 13:00 Ondansetron HCl (Zofran) 4 mg PRN Q6HRS PRN IVP NAUESA, 1ST CHOICE Last administered on 06/29/19at 16:18; Start 06/26/19 at 13:00 Sevoflurane (Ultane) 60 ml STK-MED ONCE IH ; Start 06/26/19 at 13:12; Stop 06/26/19 at 13:12; Status DC Fentanyl Citrate (Fentanyl 2ml Vial) 100 mcg STK-MED ONCE .ROUTE ; Start 06/26/19 at 13:20; Stop 06/26/19 at 13:21; Status DC Prochlorperazine Edisylate (Compazine) 10 mg STK-MED ONCE .ROUTE ; Start 06/26/19 at 13:20; Stop 06/26/19 at 13:21; Status DC Lidocaine HCl (Xylocaine 2% Topical 5gm Tube) 5 luiz STK-MED ONCE TP ; Start 06/26/19 at 13:25; Stop 06/26/19 at 13:25; Status DC Insulin Human Lispro (HumaLOG) 0-7 UNITS [id number] SQ ; Start 06/27/19 at 00:00 Dextrose (Dextrose 50%-Water Syringe) 12.5 gm PRN Q15MIN PRN IV SEE COMMENTS; Start 06/26/19 at 18:15 Amlodipine Besylate (Norvasc) 5 mg DAILY PO Last administered on 06/28/19at 13:58; Start 06/28/19 at 14:00 Atorvastatin Calcium (Lipitor) 20 mg QHS PO Last administered on 06/28/19at 20:27; Start 06/28/19 at 21:00 Cetirizine HCl (ZyrTEC) 10 mg DAILY PO Last administered on 06/28/19at 13:56; Start 06/28/19 at 14:00 Metformin HCl (Glucophage) 500 mg BIDWMEALS PO ; Start 06/28/19 at 17:00 Trazodone HCl (Desyrel) 50 mg PRN QHS PRN PO sleep Last administered on 06/28/19at 22:42; Start 06/28/19 at 13:00 Citalopram Hydrobromide (CeleXA) 20 mg DAILY PO ; Start 06/29/19 at 09:00 Losartan Potassium (Cozaar) 100 mg DAILY PO Last administered on 06/28/19at 13:57; Start 06/28/19 at 14:00 Pantoprazole Sodium (Protonix) 40 mg DAILYAC PO Last administered on 06/28/19at 16:34; Start 06/28/19 at 16:30 Hydrochlorothiazide (Hydrodiuril) 25 mg DAILY PO Last administered on 06/28/19at 13:57; Start 06/28/19 at 14:00 Artificial Tears (Artificial Tears) 1 drop PRN Q15MIN PRN OU DRY EYE; Start 06/30/19 at 16:15 Active Scripts Active Reported Probiotic (L.acidoph & Paracasei,B.lactis) 1 Each Capsule 1 Cap PO DAILY 10 Days Cinnamon (Cinnamon Bark) 500 Mg Capsule 1,000 Mg PO DAILY Docusate Sodium 100 Mg Capsule 1 Cap PO DAILY 30 Days Zyrtec (Cetirizine Hcl) 10 Mg Tablet 10 Mg PO DAILY Magnesium Oxide 250 Mg Tablet 250 Mg PO DAILY Multiple Vitamins (Multivitamin) 1 Each Tablet 1 Tab PO DAILY 30 Days Vitamin B12 (Cyanocobalamin (Vitamin B-12)) 2,500 Mcg Tablet 1,000 Mcg PO DAILY Vitamin D3 (Cholecalciferol (Vitamin D3)) 4,000 Unit Capsule 10,000 Unit PO BID Trazodone Hcl 50 Mg Tablet 1 Tab PO PRN QHS PRN Ondansetron Odt (Ondansetron) 4 Mg Tab.rapdis 1 Tab PO PRN Q6-8HRS Omeprazole 20 Mg Tablet.dr 1 Tab PO BID Metformin Hcl 500 Mg Tablet 500 Mg PO BIDWMEALS Losartan-Hctz 100-25 Mg Tab (Losartan/Hydrochlorothiazide) 1 Each Tablet 1 Tab PO DAILY Flonase Allergy Relief (Fluticasone Propionate) 9.9 Ml Brethren.susp 2 Sprays NS DAILY Escitalopram Oxalate 10 Mg Tablet 10 Mg PO DAILY Amlodipine Besylate 5 Mg Tablet 5 Mg PO DAILY Aspir-Low (Aspirin) 81 Mg Tablet.dr 1 Tab PO DAILY Fish Oil Conc 1,000 mg Softgel ([place]-3/Dha/Epa/Fish Oil) 1,000 Mg Capsule 2,000 Mg PO BID Atorvastatin Calcium 20 Mg Tablet 1 Tab PO DAILY Allergies Allergies: Coded Allergies: shellfish derived (Verified Allergy, Severe, Shortness of Air, 06/26/19) throat swells Iodine and Iodide Containing Produc (Verified Allergy, Intermediate, Hives, 06/26/19) Penicillins (Verified Allergy, Intermediate, Unknown, 06/23/19) I was 6 months old and had a reaction Vitals VITALS Vital Signs Date Time Temp Pulse Resp B/P (MAP) Pulse Ox O2 Delivery O2 Flow Rate FiO2 06/30/19 15:00 98.4 104 16 156/97 (116) 97 Nasal Cannula 2.0 98.4 Labs Labs Laboratory Tests Test 06/28/19 23:48 06/29/19 05:41 06/29/19 09:00 06/29/19 11:05 Glucose (Fingerstick) 93 mg/dL (70-99) 119 mg/dL (70-99) 89 mg/dL (70-99) White Blood Count 8.1 x10^3/uL (4.0-11.0) Red Blood Count 4.63 x10^6/uL (4.30-5.70) Hemoglobin 11.1 g/dL (13.0-17.5) Hematocrit 35.5 % (39.0-53.0) Mean Corpuscular Volume 77 fL (79-100) Mean Corpuscular Hemoglobin 24 pg (25-35) Mean Corpuscular Hemoglobin Concent 31 g/dL (31-37) Red Cell Distribution Width 32.1 % (11.5-14.5) Platelet Count 258 x10^3/uL (140-400) Sodium Level 138 mmol/L (136-145) Potassium Level 3.5 mmol/L (3.5-5.1) Chloride Level 100 mmol/L (98-107) Carbon Dioxide Level 30 mmol/L (21-32) Anion Gap 8 (6-14) Blood Urea Nitrogen 12 mg/dL (8-26) Creatinine 0.7 mg/dL (0.7-1.3) Estimated GFR (Cockcroft-Gault) 116.7 BUN/Creatinine Ratio 17 (6-20) Glucose Level 108 mg/dL (70-99) Calcium Level 8.7 mg/dL (8.5-10.1) Total Bilirubin 0.5 mg/dL (0.2-1.0) Aspartate Amino Transf (AST/SGOT) 11 U/L (15-37) Alanine Aminotransferase (ALT/SGPT) 17 U/L (16-63) Alkaline Phosphatase 68 U/L (46-116) Total Protein 6.3 g/dL (6.4-8.2) Albumin 2.8 g/dL (3.4-5.0) Albumin/Globulin Ratio 0.8 (1.0-1.7) Test 06/30/19 00:01 06/30/19 05:52 06/30/19 16:36 Glucose (Fingerstick) 92 mg/dL (70-99) 99 mg/dL (70-99) 78 mg/dL (70-99) Laboratory Tests Test 06/30/19 00:01 06/30/19 05:52 06/30/19 16:36 Glucose (Fingerstick) 92 mg/dL (70-99) 99 mg/dL (70-99) 78 mg/dL (70-99) MARYCRUZ LOGAN MD Jun 30, 2019 17:25
[2019-06-30] MEDS: ATORVASTATIN CALCIUM 20 MG TABLET PO SCH (21:00)
--- NOTE | 2019-07-01 02:23 | NUR ---
Report rcvd. from SHAUNA Chadwick. Assumed care of patient at this time. Addendum: 07/01/19 at 0243 by ANKITA ALDRIDGE RN Care of patient transferred back to SHAUNA Chadwick at this time.
[2019-07-01 03:00] VITALS: BP 147/93
[2019-07-01 04:23] LABS: URIC ACID 7.5 mg/dL (3.5-7.2)
[2019-07-01] MEDS: IV NORMAL SALINE 1000ML BAG 1,000 ML IV SCH (04:52)
[2019-07-01] MEDS: IV RINGERS,LACTATED 1000ML 1,000 ML IV SCH ×3 (04:53→23:00)
[2019-07-01] MEDS: ENOXAPARIN 40 MG/0.4 ML SYRINGE. SQ SCH (06:00)
[2019-07-01] MEDS: INSULIN LISPRO 300 UNITS/3 ML VIAL. SQ SCH ×4 (06:00→17:47)
[2019-07-01 07:00] VITALS: BP 135/91
[2019-07-01] MEDS: PANTOPRAZOLE 40 MG TABLET.DR. PO SCH (07:30)
[2019-07-01] MEDS: metFORMIN 500 MG TABLET PO SCH ×2 (08:00→17:00)
--- NOTE | 2019-07-01 08:55 | PDOC ---
SURGICAL PROGRESS NOTE Subjective d/w nursing, did have NG to LIS for bloating yesterday, unsure when--there is 500cc in canister + flatus hoping for ng out Vital Signs Vital Signs Date Time Temp Pulse Resp B/P (MAP) Pulse Ox O2 Delivery O2 Flow Rate FiO2 07/01/19 07:00 98.7 94 18 135/91 (106) 95 Room Air 98.7 06/30/19 20:00 2.0 General: Alert, Oriented X3, Cooperative HEENT: Other (ng in place) Abdomen: Soft, Other (incision c/d/i, no erythema, fannie in place, mildly distended ) Labs Laboratory Tests Test 06/29/19 09:00 06/29/19 11:05 06/30/19 00:01 06/30/19 05:52 White Blood Count 8.1 x10^3/uL (4.0-11.0) Red Blood Count 4.63 x10^6/uL (4.30-5.70) Hemoglobin 11.1 g/dL (13.0-17.5) Hematocrit 35.5 % (39.0-53.0) Mean Corpuscular Volume 77 fL (79-100) Mean Corpuscular Hemoglobin 24 pg (25-35) Mean Corpuscular Hemoglobin Concent 31 g/dL (31-37) Red Cell Distribution Width 32.1 % (11.5-14.5) Platelet Count 258 x10^3/uL (140-400) Sodium Level 138 mmol/L (136-145) Potassium Level 3.5 mmol/L (3.5-5.1) Chloride Level 100 mmol/L (98-107) Carbon Dioxide Level 30 mmol/L (21-32) Anion Gap 8 (6-14) Blood Urea Nitrogen 12 mg/dL (8-26) Creatinine 0.7 mg/dL (0.7-1.3) Estimated GFR (Cockcroft-Gault) 116.7 BUN/Creatinine Ratio 17 (6-20) Glucose Level 108 mg/dL (70-99) Calcium Level 8.7 mg/dL (8.5-10.1) Total Bilirubin 0.5 mg/dL (0.2-1.0) Aspartate Amino Transf (AST/SGOT) 11 U/L (15-37) Alanine Aminotransferase (ALT/SGPT) 17 U/L (16-63) Alkaline Phosphatase 68 U/L (46-116) Total Protein 6.3 g/dL (6.4-8.2) Albumin 2.8 g/dL (3.4-5.0) Albumin/Globulin Ratio 0.8 (1.0-1.7) Glucose (Fingerstick) 89 mg/dL (70-99) 92 mg/dL (70-99) 99 mg/dL (70-99) Test 06/30/19 16:36 07/01/19 00:26 07/01/19 03:30 Glucose (Fingerstick) 78 mg/dL (70-99) 86 mg/dL (70-99) Uric Acid 7.5 mg/dL (3.5-7.2) Lactate Dehydrogenase 359 U/L (85-227) Laboratory Tests Test 06/30/19 16:36 07/01/19 00:26 07/01/19 03:30 Glucose (Fingerstick) 78 mg/dL (70-99) 86 mg/dL (70-99) Uric Acid 7.5 mg/dL (3.5-7.2) Lactate Dehydrogenase 359 U/L (85-227) Assessment/Plan s/p SBR currently no residual-unsure when had output yesterday--will leave clamped until 1200 and trial clears, if residual remains low will BETHANY Paulson APRN Jul 01, 2019 08:55
[2019-07-01] MEDS: CETIRIZINE HCL 10 MG TABLET. PO SCH (09:00)
[2019-07-01] MEDS: amLODIPine BESYLATE 5 MG TABLET PO SCH (09:00)
[2019-07-01] MEDS: CITALOPRAM 20 MG TABLET. PO SCH (09:00)
[2019-07-01] MEDS: LOSARTAN POTASSIUM 50 MG TABLET. PO SCH (09:00)
[2019-07-01] MEDS: hydroCHLOROthiazide 25 MG TABLET PO SCH (09:00)
[2019-07-01 11:00] VITALS: BP 136/77
--- NOTE | 2019-07-01 12:15 | NUR ---
NG tube residual assessed, 100cc out. Per free text, NG discontinued. Patient continuing on clear liquid diet.
[2019-07-01 15:00] VITALS: BP 148/93
[2019-07-01] MEDS ORDERED: HYDROcodone/APAP 5/325MG 1 TAB TABLET PO PRN (17:00)
[2019-07-01] MEDS: DOCUSATE SODIUM 100 MG CAPSULE. PO SCH (18:07)
[2019-07-01 19:00] VITALS: BP 159/94
[2019-07-01] MEDS: ATORVASTATIN CALCIUM 20 MG TABLET PO SCH (21:37)
[2019-07-01 23:50] VITALS: BP 136/81
[2019-07-02 03:53] VITALS: BP 138/83
[2019-07-02] MEDS: INSULIN LISPRO 300 UNITS/3 ML VIAL. SQ SCH ×4 (06:00→21:00)
[2019-07-02] MEDS: ENOXAPARIN 40 MG/0.4 ML SYRINGE. SQ SCH (06:36)
[2019-07-02 07:00] VITALS: BP 137/96
[2019-07-02] MEDS: PANTOPRAZOLE 40 MG TABLET.DR. PO SCH (07:41)
[2019-07-02] MEDS: metFORMIN 500 MG TABLET PO SCH ×2 (08:00→17:00)
[2019-07-02] MEDS: IV RINGERS,LACTATED 1000ML 1,000 ML IV SCH (09:00)
[2019-07-02] MEDS: CITALOPRAM 20 MG TABLET. PO SCH (10:13)
[2019-07-02] MEDS: hydroCHLOROthiazide 25 MG TABLET PO SCH (10:14)
[2019-07-02] MEDS: LOSARTAN POTASSIUM 50 MG TABLET. PO SCH (10:14)
[2019-07-02] MEDS: amLODIPine BESYLATE 5 MG TABLET PO SCH (10:15)
[2019-07-02] MEDS: DOCUSATE SODIUM 100 MG CAPSULE. PO SCH (10:16)
[2019-07-02] MEDS: CETIRIZINE HCL 10 MG TABLET. PO SCH (10:16)
--- NOTE | 2019-07-02 10:50 | PDOC ---
SURGICAL PROGRESS NOTE Subjective feeling well eating no complaints Vital Signs Vital Signs Date Time Temp Pulse Resp B/P (MAP) Pulse Ox O2 Delivery O2 Flow Rate FiO2 07/02/19 10:15 83 137/96 07/02/19 07:00 97.9 18 94 Room Air 97.9 I&O Intake and Output 07/02/19 07:00 Intake Total 100 ml Output Total 100 ml Balance 0 ml Intake Oral 100 ml Gastric Drainage Total 100 ml General: Alert, Oriented X3, Cooperative Abdomen: Soft, Other (incision c/d/i, no erythema ) Labs Laboratory Tests Test 06/30/19 16:36 07/01/19 00:26 07/01/19 03:30 07/01/19 12:10 Glucose (Fingerstick) 78 mg/dL (70-99) 86 mg/dL (70-99) 103 mg/dL (70-99) Uric Acid 7.5 mg/dL (3.5-7.2) Lactate Dehydrogenase 359 U/L (85-227) Test 07/01/19 17:59 07/02/19 10:10 Glucose (Fingerstick) 112 mg/dL (70-99) 127 mg/dL (70-99) Laboratory Tests Test 07/01/19 12:10 07/01/19 17:59 07/02/19 10:10 Glucose (Fingerstick) 103 mg/dL (70-99) 112 mg/dL (70-99) 127 mg/dL (70-99) Assessment/Plan plan for bone marrow bx tomorrow, home after BETHANY HERNANDEZ APRN Jul 02, 2019 10:50
[2019-07-02] MEDS: IV NORMAL SALINE 1000ML BAG 1,000 ML IV SCH (12:44)
[2019-07-02 15:00] VITALS: BP 132/79
[2019-07-02 19:00] VITALS: BP 160/83
[2019-07-02] MEDS: ATORVASTATIN CALCIUM 20 MG TABLET PO SCH (21:35)
[2019-07-02 23:00] VITALS: BP 120/57
[2019-07-03] MEDS: IV RINGERS,LACTATED 1000ML 1,000 ML IV SCH ×3 (00:32→12:25)
[2019-07-03 03:00] VITALS: BP 139/91
[2019-07-03] MEDS: ENOXAPARIN 40 MG/0.4 ML SYRINGE. SQ SCH (06:00)
--- NOTE | 2019-07-03 06:39 | NUR ---
Patient has bone marrow biopsy scheduled, held lovonox because of that.
[2019-07-03 07:00] VITALS: BP 140/91
[2019-07-03] MEDS: PANTOPRAZOLE 40 MG TABLET.DR. PO SCH (07:30)
[2019-07-03] MEDS: INSULIN LISPRO 300 UNITS/3 ML VIAL. SQ SCH ×2 (07:30→11:13)
[2019-07-03] MEDS: CITALOPRAM 20 MG TABLET. PO SCH (07:46)
[2019-07-03] MEDS: LOSARTAN POTASSIUM 50 MG TABLET. PO SCH (07:46)
[2019-07-03] MEDS: DOCUSATE SODIUM 100 MG CAPSULE. PO SCH (07:46)
[2019-07-03] MEDS: metFORMIN 500 MG TABLET PO SCH (07:46)
[2019-07-03] MEDS: amLODIPine BESYLATE 5 MG TABLET PO SCH (07:47)
[2019-07-03] MEDS: hydroCHLOROthiazide 25 MG TABLET PO SCH (07:47)
[2019-07-03] MEDS: CETIRIZINE HCL 10 MG TABLET. PO SCH (07:47)
[2019-07-03 08:32] LABS: BASO % 1 % (0-3); EOS # 0.1 x10^3/uL (0.0-0.7); EOS % 2 % (0-3); HEMATOCRIT 35.8 % (39.0-53.0); LYMPH # 1.3 x10^3/uL (1.0-4.8); LYMPH % 25 % (24-48); MEAN CORPUSCULAR HEMOGLOBIN 24 pg (25-35); MEAN CORPUSCULAR HGB CONC 31 g/dL (31-37); MEAN CORPUSCULAR VOLUME 78 fL (79-100); MONO # 0.5 x10^3/uL (0.0-1.1); MONO % 9 % (0-9); NEUT # 3.3 x10^3/uL (1.8-7.7); NEUT % 63 % (31-73); PLATELET COUNT 226 x10^3/uL (140-400); RED BLOOD COUNT 4.58 x10^6/uL (4.30-5.70); RED CELL DISTRIBUTION WIDTH 30.6 % (11.5-14.5); WHITE BLOOD COUNT 5.3 x10^3/uL (4.0-11.0)
[2019-07-03 08:42] LABS: PROTHROMBIN TIME PATIENT 13.2 SEC (11.7-14.0)
--- NOTE | 2019-07-03 09:48 | PDOC ---
SURGICAL PROGRESS NOTE Subjective feels well waiting for biopsy today Vital Signs Vital Signs Date Time Temp Pulse Resp B/P (MAP) Pulse Ox O2 Delivery O2 Flow Rate FiO2 07/03/19 08:00 Room Air 07/03/19 07:00 97.9 56 18 140/91 (107) 95 97.9 I&O Intake and Output 07/03/19 07:00 # Voids 5 General: Alert, Oriented X3, Cooperative Abdomen: Soft, Other (ND) Labs Laboratory Tests Test 07/01/19 12:10 07/01/19 17:59 07/02/19 10:10 07/02/19 17:13 Glucose (Fingerstick) 103 mg/dL (70-99) 112 mg/dL (70-99) 127 mg/dL (70-99) 102 mg/dL (70-99) Test 07/02/19 20:31 07/03/19 07:37 07/03/19 08:25 Glucose (Fingerstick) 116 mg/dL (70-99) 99 mg/dL (70-99) White Blood Count 5.3 x10^3/uL (4.0-11.0) Red Blood Count 4.58 x10^6/uL (4.30-5.70) Hemoglobin 11.0 g/dL (13.0-17.5) Hematocrit 35.8 % (39.0-53.0) Mean Corpuscular Volume 78 fL (79-100) Mean Corpuscular Hemoglobin 24 pg (25-35) Mean Corpuscular Hemoglobin Concent 31 g/dL (31-37) Red Cell Distribution Width 30.6 % (11.5-14.5) Platelet Count 226 x10^3/uL (140-400) Neutrophils (%) (Auto) 63 % (31-73) Lymphocytes (%) (Auto) 25 % (24-48) Monocytes (%) (Auto) 9 % (0-9) Eosinophils (%) (Auto) 2 % (0-3) Basophils (%) (Auto) 1 % (0-3) Neutrophils # (Auto) 3.3 x10^3/uL (1.8-7.7) Lymphocytes # (Auto) 1.3 x10^3/uL (1.0-4.8) Monocytes # (Auto) 0.5 x10^3/uL (0.0-1.1) Eosinophils # (Auto) 0.1 x10^3/uL (0.0-0.7) Basophils # (Auto) 0.0 x10^3/uL (0.0-0.2) Prothrombin Time 13.2 SEC (11.7-14.0) Prothromb Time International Ratio 1.0 (0.8-1.1) Activated Partial Thromboplast Time 28 SEC (24-38) Laboratory Tests Test 07/02/19 10:10 07/02/19 17:13 07/02/19 20:31 07/03/19 07:37 Glucose (Fingerstick) 127 mg/dL (70-99) 102 mg/dL (70-99) 116 mg/dL (70-99) 99 mg/dL (70-99) Test 07/03/19 08:25 White Blood Count 5.3 x10^3/uL (4.0-11.0) Red Blood Count 4.58 x10^6/uL (4.30-5.70) Hemoglobin 11.0 g/dL (13.0-17.5) Hematocrit 35.8 % (39.0-53.0) Mean Corpuscular Volume 78 fL (79-100) Mean Corpuscular Hemoglobin 24 pg (25-35) Mean Corpuscular Hemoglobin Concent 31 g/dL (31-37) Red Cell Distribution Width 30.6 % (11.5-14.5) Platelet Count 226 x10^3/uL (140-400) Neutrophils (%) (Auto) 63 % (31-73) Lymphocytes (%) (Auto) 25 % (24-48) Monocytes (%) (Auto) 9 % (0-9) Eosinophils (%) (Auto) 2 % (0-3) Basophils (%) (Auto) 1 % (0-3) Neutrophils # (Auto) 3.3 x10^3/uL (1.8-7.7) Lymphocytes # (Auto) 1.3 x10^3/uL (1.0-4.8) Monocytes # (Auto) 0.5 x10^3/uL (0.0-1.1) Eosinophils # (Auto) 0.1 x10^3/uL (0.0-0.7) Basophils # (Auto) 0.0 x10^3/uL (0.0-0.2) Prothrombin Time 13.2 SEC (11.7-14.0) Prothromb Time International Ratio 1.0 (0.8-1.1) Activated Partial Thromboplast Time 28 SEC (24-38) Problem List remove fannie drain can dc home after bone marrow bx BETHANY HERNANDEZ APRN Jul 03, 2019 09:48
[2019-07-03] MEDS ORDERED: HYDR-2761 PO (09:50)
--- NOTE | 2019-07-03 09:53 | DISCH ---
DISCHARGE INSTRUCTIONS Condition on Discharge Condition on Discharge: Stable Activity After Discharge Activity Instructions for Disc: Activity as tolerated Other activity instructions: ok ot shower, no tub baths Lifting Instructions after Dis: No heavy lifting, No pulling or pushing (20 lbs) Exercise Instruction after Dis: Progress as tolerated Driving Instructions after Dis: Do not drive (no driving while taking pain medication ) Diet after Discharge Diet after Discharge: GI Soft Wound Incision Care Wound/Incision Care: Change dressing, May get incision wet Contacting the DRFlori after DC Call your doctor for: Concerns you may have Follow-Up Follow up with: Dr Lala 1-2 weeks call to schedule [phone] BETHANY HERNANDEZ APRN Jul 03, 2019 09:53
--- NOTE | 2019-07-03 09:56 | PDOC ---
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 Gurrola in [place] who is one of our lymphoma experts after dc Disposition: After BMBx, we will arrange outpt f/u Thank you kindly and please do not hesitate to call with any further questions. OBJECTIVE Vital Signs Vital Signs Date Time Temp Pulse Resp B/P (MAP) Pulse Ox O2 Delivery O2 Flow Rate FiO2 07/03/19 08:00 Room Air 07/03/19 07:00 97.9 56 18 140/91 (107) 95 Room Air 97.9 07/03/19 03:00 98.5 85 18 139/91 (107) 95 Room Air 98.5 07/02/19 23:00 98.7 80 18 120/57 (78) 95 Room Air 98.7 07/02/19 20:00 Room Air 07/02/19 19:00 98.6 70 18 160/83 (108) 98 Room Air 98.6 07/02/19 15:00 98.1 64 16 132/79 (96) 97 Room Air 98.1 07/02/19 10:15 83 137/96 07/02/19 10:14 83 137/96 I & O Intake and Output 07/03/19 07:00 # Voids 5 COMMENT Lab Laboratory Tests Test 07/02/19 10:10 07/02/19 17:13 07/02/19 20:31 07/03/19 07:37 Glucose (Fingerstick) 127 mg/dL (70-99) 102 mg/dL (70-99) 116 mg/dL (70-99) 99 mg/dL (70-99) Test 07/03/19 08:25 White Blood Count 5.3 x10^3/uL (4.0-11.0) Red Blood Count 4.58 x10^6/uL (4.30-5.70) Hemoglobin 11.0 g/dL (13.0-17.5) Hematocrit 35.8 % (39.0-53.0) Mean Corpuscular Volume 78 fL (79-100) Mean Corpuscular Hemoglobin 24 pg (25-35) Mean Corpuscular Hemoglobin Concent 31 g/dL (31-37) Red Cell Distribution Width 30.6 % (11.5-14.5) Platelet Count 226 x10^3/uL (140-400) Neutrophils (%) (Auto) 63 % (31-73) Lymphocytes (%) (Auto) 25 % (24-48) Monocytes (%) (Auto) 9 % (0-9) Eosinophils (%) (Auto) 2 % (0-3) Basophils (%) (Auto) 1 % (0-3) Neutrophils # (Auto) 3.3 x10^3/uL (1.8-7.7) Lymphocytes # (Auto) 1.3 x10^3/uL (1.0-4.8) Monocytes # (Auto) 0.5 x10^3/uL (0.0-1.1) Eosinophils # (Auto) 0.1 x10^3/uL (0.0-0.7) Basophils # (Auto) 0.0 x10^3/uL (0.0-0.2) Prothrombin Time 13.2 SEC (11.7-14.0) Prothromb Time International Ratio 1.0 (0.8-1.1) Activated Partial Thromboplast Time 28 SEC (24-38) MARYCRUZ LOGAN MD Jul 03, 2019 09:56
[2019-07-03 11:00] VITALS: BP 147/94
--- NOTE | 2019-07-03 11:28 | NUR ---
SW following. Discussed with RN, pt having bone marrow biopsy today, should be able to discharge home with self care afterwards. RN advised no SW needs at this time.
[2019-07-03] MEDS ORDERED: LIDOCAINE WITH 8.4% SOD BICARB 3 ML DISP.SYRIN. ONE (13:07)
[2019-07-03] MEDS ORDERED: fentaNYL PF VIAL 100 MCG/2 ML VIAL ONE (13:11)
[2019-07-03] MEDS ORDERED: MIDAZOLAM HCL/PF 2 MG/2 ML VIAL. ONE (13:11)
[2019-07-03] MEDS ORDERED: fentaNYL PF VIAL 100 MCG/2 ML VIAL IV ONE (13:30)
[2019-07-03] MEDS ORDERED: MIDAZOLAM HCL/PF 2 MG/2 ML VIAL. IV ONE (13:30)
[2019-07-03] MEDS ORDERED: LIDOCAINE WITH 8.4% SOD BICARB 3 ML DISP.SYRIN. IJ ONE (13:30)
[2019-07-03 13:33] VITALS: BP 140/91
[2019-07-03 13:38] VITALS: BP 114/84
[2019-07-03 13:43] VITALS: BP 130/83
--- NOTE | 2019-07-03 13:54 | RAD ---
CT-guided bone marrow biopsy. 07/03/2019 11:50 AM Indication: BMBx for staging lymphoma Discussion: The risks and benefits of the procedure, including but not limited to, bleeding and infection were discussed patient. Informed consent was obtained. The patient was brought to the CT scanner and placed in the prone position. A timeout procedure was performed. Rehabilitation Teacher CT imaging of the pelvis demonstrated left ilium amenable to bone marrow biopsy. The overlying soft tissues were prepped and draped using maximum sterile barrier technique. 1% lidocaine without epinephrine was administered for local anesthesia. Under intermittent CT guidance, an OncControl needle was advanced into the bone marrow of the left iliac crest. 2 Aspirates and 1 core biopsy samples were obtained. Samples were delivered to pathology was present at the time of procedure. The needle was removed and manual pressure held to achieve hemostasis. No immediate complications were identified. The procedure was performed under conscious sedation including continuous cardiopulmonary monitoring via dedicated sedation nurse. Sedation time: 20 minutes Impression: Successful CT-guided bone marrow biopsy of the left iliac crest . PQRS Compliance Statement: One or more of the following individualized dose reduction techniques were utilized for this examination: 1. Automated exposure control 2. Adjustment of the mA and/or kV according to patient size 3. Use of iterative reconstruction technique
--- NOTE | 2019-07-03 14:50 | NUR ---
[place] drain removed from patients abdomen, no concerns.
--- NOTE | 2019-07-03 15:30 | NUR ---
Discharge Note: ROWAN YORK Discharge instructions and discharge home medications reviewed with Patient and a copy given. All questions have been answered and understanding verbalized. [place] drain removed from abdomen. The following instructions and handouts were given: information about follow up, medications, incisional care, etc. Discontinued lines and drains: IV in right forearm removed, catheter tip intact. Patient discharged to home with self care with , wheelchair used for mobility to discharge vehicle.
[2019-07-03 17:09] LABS: IMMUNOGLOBULIN A 266 mg/dL (90-386); IMMUNOGLOBULIN G 840 mg/dL (700-1600); IMMUNOGLOBULIN M 68 mg/dL (20-172)
[2019-07-03 20:07] LABS: ALBUM 2.9 g/dL (2.9-4.4); ALPHA 1 0.3 g/dL (0.0-0.4); BETA 0.9 g/dL (0.7-1.3); GAMMA 0.8 g/dL (0.4-1.8); PROTEIN TOTAL 5.9 g/dL (6.0-8.5)
== END 2019-07-03 15:30 | disposition home or self-care (01) | DRG 330 ==
LOC: OPSVCIP 09:23 → 4 SOUTHEST 15:13 → 4 NORTH 06-30 19:07
PROVIDERS: ADMIT Surgery; ATTEND Surgery
PROC: 0DT84ZZ Resection of Small Intestine, Percutaneous Endoscopic Approach (ICD-10-PCS; principal; 2019-06-26 11:00)
PROC: 0DTJ4ZZ Resection of Appendix, Percutaneous Endoscopic Approach (ICD-10-PCS; 2019-06-26 11:00)
PROC: 07DR3ZX Extraction of Iliac Bone Marrow, Percutaneous Approach, Diagnostic (ICD-10-PCS; 2019-07-03)
DX: K56.609 Unspecified intestinal obstruction, unspecified as to partial versus complete obstruction (principal); C82.90 Follicular lymphoma, unspecified, unspecified site; F32.9 Major depressive disorder, single episode, unspecified; K21.9 Gastro-esophageal reflux disease without esophagitis; H54.7 Unspecified visual loss; I10 Essential (primary) hypertension; E78.5 Hyperlipidemia, unspecified; D50.9 Iron deficiency anemia, unspecified; E66.9 Obesity, unspecified; Z68.31 Body mass index [BMI] 31.0-31.9, adult; Z87.891 Personal history of nicotine dependence; Z91.041 Radiographic dye allergy status; Z88.0 Allergy status to penicillin; Z91.013 Allergy to seafood
CPT/HCPCS: 36415; 38222; 74021; 77012; 80048; 80053; 82232; 82378; 82962; 83036; 83615; 84165; 84550; 85025; 85027; 85610; 85730; 86334; 86704; 86706; 86803; 87340; 88302; 88309; 88341; 88342; 99152; A7015; J0171; J0694; J0780; J1100; J1650; J1815; J2001; J2250; J2270; J2405; J2704; J2710; J3010; J3490; J7030; J7120; G0378

== ENCOUNTER 2019-10-04 22:36 | Inpatient (IN) | payer BC ==
[~2019-10-04] VITALS: Ht 180.3 cm; Wt 100.4 kg
[~2019-10-04 22:36] MED LIST changes: +BARIUM SULFATE 2.1% 450 ML SUSP ONE; +HYDR-2761 PO; -HYDROmorphone 2 MG/ML VIAL IV PRN; -IV RINGERS,LACTATED 1000ML 1,000 ML IV SCH; -LIDOCAINE 1% PF 2 ML VIAL. ID PRN; -MORPHINE SULFATE 2 MG/ML VIAL. IV PRN; -ONDANSETRON PF 4 MG/2 ML VIAL. IV PRN; -PROCHLORPERAZINE 10 MG/2 ML VIAL. IV PRN; -cefOXitin SODIUM IV Push 2 GM VIAL. IVP ONE; -fentaNYL PF VIAL 100 MCG/2 ML VIAL IV PRN
[2019-10-04] MEDS ORDERED: MORPHINE SULFATE 4 MG/ML VIAL. IV/SQ PRN (23:15)
[2019-10-04 23:34] LABS: BASO % 0 % (0-3); EOS % 1 % (0-3); HEMATOCRIT 47.7 % (39.0-53.0); HEMOGLOBIN 16.1 g/dL (13.0-17.5); LYMPH # 1.1 x10^3/uL (1.0-4.8); LYMPH % 13 % (24-48); MEAN CORPUSCULAR HEMOGLOBIN 30 pg (25-35); MEAN CORPUSCULAR HGB CONC 34 g/dL (31-37); MEAN CORPUSCULAR VOLUME 88 fL (79-100); MONO # 0.6 x10^3/uL (0.0-1.1); MONO % 7 % (0-9); NEUT # 6.9 x10^3/uL (1.8-7.7); NEUT % 79 % (31-73); PLATELET COUNT 230 x10^3/uL (140-400); RED BLOOD COUNT 5.42 x10^6/uL (4.30-5.70); RED CELL DISTRIBUTION WIDTH 15.9 % (11.5-14.5); WHITE BLOOD COUNT 8.7 x10^3/uL (4.0-11.0)
[2019-10-04 23:42] LABS: PROTHROMBIN TIME PATIENT 12.5 SEC (11.7-14.0)
[2019-10-04 23:44] LABS: CALCIUM 9.4 mg/dL (8.5-10.1); CREATININE 0.8 mg/dL (0.7-1.3); GFR 99.6; POTASSIUM 3.5 mmol/L (3.5-5.1)
[2019-10-04 23:50] LABS: ALBUMIN 3.9 g/dL (3.4-5.0); DIRECT BILIRUBIN 0.1 mg/dL (0.0-0.2); TOTAL BILIRUBIN 0.4 mg/dL (0.2-1.0); TOTAL PROTEIN 7.7 g/dL (6.4-8.2)
[2019-10-05] MEDS ORDERED: HYDROmorphone 2 MG/ML VIAL IV ONE ×2 (00:30→03:45)
[2019-10-05] MEDS ORDERED: ONDANSETRON PF 4 MG/2 ML VIAL. IVP ONE (01:00)
--- NOTE | 2019-10-05 03:00 | PHYS DOC ---
Past Medical History Past Medical History: Depression, Diabetes-Type II, High Cholesterol, Hypertension Additional Past Surgical Histo: BOWEL RESECTION IN JUNE 27 2019 Smoking Status: Former Smoker Alcohol Use: None General Adult EDM: Chief Complaint: ABDOMINAL PAIN HPI: HPI: 59-year-old male past medical history significant for diabetes, hypertension, sleep apnea, obesity, GERD, depression, hyperlipidemia, SBO w/small intestine resection (06/2019, Dr. Lala, found follicular NHL), presents to the ED with complaints of upper sharp nonradiating abdominal pain that started around 8:00 this morning with associated belching and diarrhea. Now with NBNB vomiting. Saw his primary care physician Dr. Patricia Corey at 230 today who was concerned for diverticulitis (patient ate steak and corn last night). Was diagnosed with diverticulitis based on a colonoscopy. ROS: Denies associated fever, chills, cough, dyspnea, hemoptysis, hematemesis, melena, hematochezia, chest pain or pressure, back pain, leg swelling, rash, n nemo stiffness, headache, saddle anesthesia. Review of Systems: Review of Systems: Constitutional: Denies fever or chills. [] Eyes: Denies change in visual acuity. [] HENT: Denies nasal congestion or sore throat. [] Respiratory: Denies cough or shortness of breath. [] Cardiovascular: Denies chest pain or edema. [] GI: Denies abdominal pain, nausea, vomiting, bloody stools or diarrhea. [] : Denies dysuria. [] Musculoskeletal: Denies back pain or joint pain. [] Integument: Denies rash. [] Neurologic: Denies headache, focal weakness or sensory changes. [] Endocrine: Denies polyuria or polydipsia. [] Lymphatic: Denies swollen glands. [] Psychiatric: Denies depression or anxiety. [] Current Medications: Current Medications Medications (Trade) Dose Ordered Sig/Baljinder Start Time Stop Time Status Last Admin Dose Admin Barium Sulfate (Readi-Cat 2) 900 ml STK-MED ONCE 10/04/19 02:23 10/05/19 02:23 DC Hydromorphone HCl (Dilaudid) 1 mg 1X ONCE 10/05/19 00:30 10/05/19 00:31 DC 10/05/19 01:02 1 MG Morphine Sulfate (Morphine Sulfate) 4 mg PRN Q15MIN PRN 10/04/19 23:15 10/05/19 00:40 DC Ondansetron HCl (Zofran) 4 mg 1X ONCE 10/05/19 01:00 10/05/19 01:01 DC 10/05/19 00:58 4 MG Allergies: Allergies: Allergies Coded Allergies Type Severity Reaction Last Updated Verified shellfish derived Allergy Severe Shortness of Air 06/26/19 Yes Iodine and Iodide Containing Produc Allergy Intermediate Hives 06/26/19 Yes Penicillins Allergy Intermediate Unknown 06/23/19 Yes Physical Exam: PE: Constitutional: Well developed, well nourished, no acute distress, non-toxic appearance. [] HENT: Normocephalic, atraumatic, bilateral external ears normal, oropharynx dry, no oral exudates, nose normal. [] Eyes: EOMI, conjunctiva normal, no discharge. [] Neck: Normal range of motion, no tenderness, supple, no stridor. [] Cardiovascular:Heart rate regular rhythm, no murmur [] Lungs & Thorax: Bilateral breath sounds clear to auscultation [] Abdomen: tympanic bowel sounds, distended abdomen w/upper ttp,, no masses, no pulsatile masses. [] dry heaving in ed Skin: Warm, dry, no erythema, no rash. Back: No tenderness, no CVA tenderness. [] Extremities: No tenderness, no cyanosis, no clubbing, ROM intact, no edema. [] Neurologic: Alert and oriented X 3, normal motor function, normal sensory function, no focal deficits noted. [] Psychologic: Affect normal, judgement normal, mood normal. [] Current Patient Data: Labs: Laboratory Tests Test 10/04/19 23:24 White Blood Count 8.7 x10^3/uL (4.0-11.0) Red Blood Count 5.42 x10^6/uL (4.30-5.70) Hemoglobin 16.1 g/dL (13.0-17.5) Hematocrit 47.7 % (39.0-53.0) Mean Corpuscular Volume 88 fL (79-100) Mean Corpuscular Hemoglobin 30 pg (25-35) Mean Corpuscular Hemoglobin Concent 34 g/dL (31-37) Red Cell Distribution Width 15.9 % (11.5-14.5) H Platelet Count 230 x10^3/uL (140-400) Neutrophils (%) (Auto) 79 % (31-73) H Lymphocytes (%) (Auto) 13 % (24-48) L Monocytes (%) (Auto) 7 % (0-9) Eosinophils (%) (Auto) 1 % (0-3) Basophils (%) (Auto) 0 % (0-3) Neutrophils # (Auto) 6.9 x10^3/uL (1.8-7.7) Lymphocytes # (Auto) 1.1 x10^3/uL (1.0-4.8) Monocytes # (Auto) 0.6 x10^3/uL (0.0-1.1) Eosinophils # (Auto) 0.0 x10^3/uL (0.0-0.7) Basophils # (Auto) 0.0 x10^3/uL (0.0-0.2) Prothrombin Time 12.5 SEC (11.7-14.0) Prothrombin Time INR 1.0 (0.8-1.1) Activated Partial Thromboplast Time 30 SEC (24-38) Sodium Level 137 mmol/L (136-145) Potassium Level 3.5 mmol/L (3.5-5.1) Chloride Level 99 mmol/L (98-107) Carbon Dioxide Level 26 mmol/L (21-32) Anion Gap 12 (6-14) Blood Urea Nitrogen 14 mg/dL (8-26) Creatinine 0.8 mg/dL (0.7-1.3) Estimated GFR (Cockcroft-Gault) 99.6 Glucose Level 110 mg/dL (70-99) H Calcium Level 9.4 mg/dL (8.5-10.1) Total Bilirubin 0.4 mg/dL (0.2-1.0) Direct Bilirubin 0.1 mg/dL (0.0-0.2) Aspartate Amino Transferase (AST) 17 U/L (15-37) Alanine Aminotransferase (ALT) 36 U/L (16-63) Alkaline Phosphatase 86 U/L (46-116) Creatine Kinase 116 U/L (39-308) Total Protein 7.7 g/dL (6.4-8.2) Albumin 3.9 g/dL (3.4-5.0) Lipase 118 U/L (73-393) Laboratory Tests 10/04/19 23:24 Laboratory Tests 10/04/19 23:24 Vital Signs: Vital Signs Date Time Temp Pulse Resp B/P (MAP) Pulse Ox O2 Delivery O2 Flow Rate FiO2 10/05/19 01:30 94 16 115/62 (79) 97 Room Air 10/04/19 23:05 97.6 97.6 EKG: EKG: [] Radiology/Procedures: Radiology/Procedures: IMAGING REPORT Signed PATIENT: ROWAN YORK ACCOUNT: [id number] : 1960 LOCATION: ER AGE: 59 SEX: M EXAM STATUS: REG ER ORD. PHYSICIAN: ALEJANDRO URRUTIA DO REASON: abd pain PROCEDURE: CT ABD PEL W/ORAL CONTRST ONLY INDICATION: Reason: abd pain / Spl. Instructions: / History: COMPARISON: None. TECHNIQUE: Axial CT images obtained through the abdomen and pelvis without contrast. Oral contrast was given. One or more of the following individualized dose reduction techniques were utilized for this examination: 1. Automated exposure control; 2. Adjustment of the mA and/or kV according to patient size; 3. Use of iterative reconstruction technique. FINDINGS: There are some sub-4 mm lung nodules at right lung base. Multifocal calcific atherosclerosis. No intrahepatic bile duct dilation. Gallbladder is somewhat distended. No peripancreatic fluid collection. Lobulated appearance of the spleen. Left greater than right nonobstructive renal stones without hydronephrosis. Urinary bladder is partially distended. Colonic diverticulosis. Dilated loops of proximal small bowel with more distal decompression measuring up to approximately 53 mm. There is some edema in the mesentery scoliotic curvature of the spine with multilevel central canal and neural foraminal stenosis from degenerative changes. There are some lucent regions within the osseous structures including the bilateral iliac bones IMPRESSION: * Dilated loops of small bowel are identified with distal decompression which can be seen with small bowel obstruction. There is also some associated mesenteric edema. * There are some small lung base nodules. * There is some lucent foci within the osseous structures including the bilateral iliac. Sclerotic component is seen to some of these is well. Indeterminate appearance with causes such as focal osseous demineralization within the differential but if the patient has any history or risk factors for neoplasm and may be helpful to obtain a follow-up bone scan to exclude neoplastic causes Fleischner Society recommendations for solitary solid lung nodule follow up.: In a low risk patient: <6mm - No follow up required. 6-8mm - 6-[address], then CT at 18-24 months. >8mm - CT at 3 months, PET/CT or tissue sampling. In a high risk patient (history of smoking or other known risk factors): <6mm - Follow up CT at 12 months. 6-8mm - 6-[address], then CT at 18-24 months. >8mm - CT at 3 months, PET/CT or tissue sampling. Fleischner Society recommendations for multiple solid lung nodule follow up.: In a low risk patient: <6mm - No follow up required. 6-8mm - 3-[address], then CT at 18-24 months. >8mm - CT at 3-6 months, then at 18-24 months. PET/CT or tissue sampling based on most suspicious nodule. In a high risk patient (history of smoking or other known risk factors): <6mm - Follow up CT at 12 months. 6-8mm - 3-[address], then CT at 18-24 months. >8mm - CT at 3-6 months, PET/CT or tissue sampling option based on most suspicious nodule. Electronically signed by: Deirdre Quiroga MD (10/05/2019 3:34 AM) [id number] DICTATED and SIGNED BY: DEIRDRE QUIROGA MD DATE: 10/05/19 0334 IMAGING REPORT Signed PATIENT: ROWAN YORK ACCOUNT: [id number] : 1960 LOCATION: ER AGE: 59 SEX: M EXAM STATUS: REG ER ORD. PHYSICIAN: ALEJANDRO URRUTIA DO REASON: s/p ngt placement PROCEDURE: KUB INDICATION: Reason: s/p ngt placement / Spl. Instructions: / History: COMPARISON: CT earlier same day IMPRESSION: Abdomen: Single view obtained. Enteric tube is seen with tip at left upper quadrant of abdomen at expected location of the stomach. Scoliotic curvature of the spine. Dilated loops of small bowel throughout the partially visualized abdomen which can be seen with obstruction. Electronically signed by: Deirdre Quiroga MD (10/05/2019 5:01 AM) [id number] DICTATED and SIGNED BY: DEIRDRE QUIROGA MD DATE: 10/05/19 0501 Impression: Concern for small bowel obstruction ([facility] follicular lymphoma) with no lactic acidosis, labs grossly unremarkable. NG tube placed in the ED and confirmed with x-ray. NGT placed to suction. Patient was treated with antiemetics and analgesia with pain controlled. Is in no distress at time of admission. Will admit to the medical floor with surgical consultation pending. Patient agrees with this plan. Course & Med Decision Making: Course & Med Decision Making Pertinent Labs and Imaging studies reviewed. (See chart for details) [] Dragon Disclaimer: Dragon Disclaimer: This electronic medical record was generated, in whole or in part, using a voice recognition dictation system. Departure Departure Impression: Primary Impression: Small bowel obstruction Disposition: ADMITTED INPATIENT Admitting Physician: HIMS Condition: STABLE Referrals: PATRICIA LOPES DO (PCP) Justicifation of Admission Dx: Justifications for Admission: Justification of Admission Dx: Yes Comments: ALEJADNRO KEN DO Oct 05, 2019 03:00
--- NOTE | 2019-10-05 03:37 | RAD ---
INDICATION: Reason: abd pain / Spl. Instructions: / History: COMPARISON: None. TECHNIQUE: Axial CT images obtained through the abdomen and pelvis without contrast. Oral contrast was given. One or more of the following individualized dose reduction techniques were utilized for this examination: 1. Automated exposure control; 2. Adjustment of the mA and/or kV according to patient size; 3. Use of iterative reconstruction technique. FINDINGS: There are some sub-4 mm lung nodules at right lung base. Multifocal calcific atherosclerosis. No intrahepatic bile duct dilation. Gallbladder is somewhat distended. No peripancreatic fluid collection. Lobulated appearance of the spleen. Left greater than right nonobstructive renal stones without hydronephrosis. Urinary bladder is partially distended. Colonic diverticulosis. Dilated loops of proximal small bowel with more distal decompression measuring up to approximately 53 mm. There is some edema in the mesentery scoliotic curvature of the spine with multilevel central canal and neural foraminal stenosis from degenerative changes. There are some lucent regions within the osseous structures including the bilateral iliac bones IMPRESSION: * Dilated loops of small bowel are identified with distal decompression which can be seen with small bowel obstruction. There is also some associated mesenteric edema. * There are some small lung base nodules. * There is some lucent foci within the osseous structures including the bilateral iliac. Sclerotic component is seen to some of these is well. Indeterminate appearance with causes such as focal osseous demineralization within the differential but if the patient has any history or risk factors for neoplasm and may be helpful to obtain a follow-up bone scan to exclude neoplastic causes Fleischner Society recommendations for solitary solid lung nodule follow up.: In a low risk patient: <6mm - No follow up required. 6-8mm - 6-[address], then CT at 18-24 months. >8mm - CT at 3 months, PET/CT or tissue sampling. In a high risk patient (history of smoking or other known risk factors): <6mm - Follow up CT at 12 months. 6-8mm - 6-[address], then CT at 18-24 months. >8mm - CT at 3 months, PET/CT or tissue sampling. Fleischner Society recommendations for multiple solid lung nodule follow up.: In a low risk patient: <6mm - No follow up required. 6-8mm - 3-[address], then CT at 18-24 months. >8mm - CT at 3-6 months, then at 18-24 months. PET/CT or tissue sampling based on most suspicious nodule. In a high risk patient (history of smoking or other known risk factors): <6mm - Follow up CT at 12 months. 6-8mm - 3-[address], then CT at 18-24 months. >8mm - CT at 3-6 months, PET/CT or tissue sampling option based on most suspicious nodule. Electronically signed by: Nelson Moreno MD (10/05/2019 3:34 AM) [id number]
[2019-10-05] MEDS ORDERED: IV NORMAL SALINE 1000ML BAG 1,000 ML IV ONE (04:00)
[2019-10-05] MEDS ORDERED: ONDANSETRON PF 4 MG/2 ML VIAL. IV PRN (04:45)
--- NOTE | 2019-10-05 05:03 | RAD ---
INDICATION: Reason: s/p ngt placement / Spl. Instructions: / History: COMPARISON: CT earlier same day IMPRESSION: Abdomen: Single view obtained. Enteric tube is seen with tip at left upper quadrant of abdomen at expected location of the stomach. Scoliotic curvature of the spine. Dilated loops of small bowel throughout the partially visualized abdomen which can be seen with obstruction. Electronically signed by: Nelsno Moreon MD (10/05/2019 5:01 AM) [id number]
[2019-10-05 08:20] VITALS: BP 152/88
[2019-10-05] MEDS: MORPHINE SULFATE 4 MG/ML VIAL. IV PRN ×5 (08:45→19:26)
[2019-10-05] MEDS ORDERED: FERR-36 PO (10:52)
[2019-10-05] MEDS ORDERED: ESCITALOPRAM OX20 MG PO (10:52)
[2019-10-05 10:56] VITALS: BP 143/86
[2019-10-05] MEDS: AMINO AC 3%/ELECTROLYTE/GLYCER 1,000 ML IV SCH ×2 (11:17→22:58)
--- NOTE | 2019-10-05 14:42 | HP ---
ADMIT DATE: 10/05/2019 CHIEF COMPLAINT: Abdominal pain. HISTORY OF PRESENT ILLNESS: The patient is a pleasant 59-year-old male who underwent partial bowel resection in 06/2019. Today, he presents with abdominal pain. We did some imaging showing a small-bowel obstruction. We placed an NG tube. We consulted with Dr. Lala. PAST MEDICAL HISTORY: Bowel resection in 06/2019, depression, diabetes, hypertension and hyperlipidemia. ALLERGIES: IODINE, PENICILLIN AND SHELLFISH. FAMILY HISTORY: Coronary artery disease. SOCIAL HISTORY: He works [employer] at [employer]. Does not drink, smoke or take drugs. MEDICATIONS: Reviewed, please refer to the MRAD. REVIEW OF SYSTEMS: GENERAL: No history of weight change, weakness or fevers. SKIN: No bruising, hair changes or rashes. EYES: No blurred, double or loss of vision. NOSE AND THROAT: No history of nosebleeds, hoarseness or sore throat. HEART: No history of palpitations, chest pain or shortness of breath on exertion. LUNGS: Denies cough, hemoptysis, wheezing or shortness of breath. GASTROINTESTINAL: He complains of abdominal pain. GENITOURINARY: No history of frequency, urgency, hesitancy or nocturia. NEUROLOGIC: Denies history of numbness, tingling, tremor or weakness. PSYCHIATRIC: No history of panic, anxiety or depression. ENDOCRINE: No history of heat or cold intolerance, polyuria or polydipsia. EXTREMITIES: Denies muscle weakness, joint pain, pain on walking or stiffness. PHYSICAL EXAMINATION: VITALS: Within normal limits and are stable. GENERAL: No apparent distress. Alert and oriented. HEENT: He has an NG tube in place and it is low intermittent suction. EYES: Extraocular muscles are intact, pupils are equally round and reactive to light and accommodation MUSCULOSKELETAL: Well developed, well nourished, good range of motion ENDOCRINE: No thyromegaly was palpated LYMPHATICS: No cervical chain or axillary nodes were noted HEMATOPOIETIC: No bruising NECK: Supple, no JVD, no thyromegaly was noted. LUNGS: Clear to auscultation in all lung [place] without rhonchi or wheezing. HEART: RRR, S1, S2 present. Peripheral pulses intact, no obvious murmurs were noted. ABDOMEN: He has decreased bowel sounds. EXTREMITIES: Without any cyanosis, clubbing, or edema. Pedal pulses intact, Homans sign is negative. NEUROLOGIC: Normal speech, normal tone. A & O x3, moves all extremities, no obvious focal deficits. PSYCHIATRIC: Normal affect, normal mood. Stable. SKIN: No ulcerations or rashes, good skin turgor, no jaundice. VASCULAR: Good capillary refill, neurovascular bundle appears to be intact. LABORATORY DATA: Hematology is normal. Electrolytes are normal. ASSESSMENT AND PLAN: Small-bowel obstruction. The patient is being admitted. We will consult Dr. Lala. NG tube to low intermittent suction. IV fluids with procalamine at 75 mL an hour. Home meds. DVT prophylaxis. Full code. TK JONES DO DR: CHRISTOS/jose JOB#: [id number] / [id number]
[2019-10-05 15:00] VITALS: BP 134/83
[2019-10-05] MEDS: CETIRIZINE HCL 10 MG TABLET. PO SCH (15:00)
[2019-10-05] MEDS: MAGNESIUM OXIDE 400 MG TABLET PO SCH (15:00)
[2019-10-05] MEDS: amLODIPine BESYLATE 5 MG TABLET PO SCH (15:00)
[2019-10-05] MEDS: ATORVASTATIN CALCIUM 20 MG TABLET PO SCH (15:00)
[2019-10-05] MEDS: LOSARTAN POTASSIUM 50 MG TABLET. PO SCH (15:00)
[2019-10-05] MEDS: FERROUS SULFATE 325 MG TABLET. PO SCH (15:00)
[2019-10-05] MEDS: DOCUSATE SODIUM 100 MG CAPSULE. PO SCH (15:00)
[2019-10-05] MEDS: PANTOPRAZOLE 40 MG TABLET.DR. PO SCH (15:00)
[2019-10-05] MEDS: CITALOPRAM 20 MG TABLET. PO SCH (15:00)
[2019-10-05] MEDS: ASPIRIN ENTERIC COATED 81 MG TABLET.DR. PO SCH (15:00)
[2019-10-05] MEDS: hydroCHLOROthiazide 25 MG TABLET PO SCH (15:00)
[2019-10-05] MEDS: LACTOBACILLUS RHAMNOSUS GG 1 CAPSULE. PO SCH (15:00)
[2019-10-05] MEDS: MULTIVITAMIN with MINERAL TABLET. PO SCH (15:00)
[2019-10-05] MEDS: CYANOCOBALAMIN (VITAMIN B-12) 1,000 MCG TABLET. PO SCH (15:00)
[2019-10-05] MEDS: FLUTICASONE 50MCG/NASAL SPRAY 16GM BOTTLE. NS SCH (15:00)
--- NOTE | 2019-10-05 15:00 | PDOC2 ---
CONSULT Date of Consult Date of Consult DATE: 10/05/19 TIME: 14:55 Reason for Consult Reason for Consult: SBO Referring Physician Referring Physician: Dr. Graham Identification/Chief Complaint Chief Complaint abd pain Source Source: Chart review, Patient History of Present Illness Reason for Visit: 59 yo M with history of Small bowel stricture, s/p small bowel resection. Pt identified to have lymphoma and was tentatively to have immunotherapy this month. However, presents with abd pain. He was admitted and has NGT. Some improvement in pain, but no flatus. Past Medical History Heme/Onc: Cancer Past Surgical History Past Surgical History: Other (small bowel resecton) Family History Family History: No Significant Social History No ALCOHOL: none Current Medications Current Medications Current Medications Morphine Sulfate (Morphine Sulfate) 4 mg PRN Q15MIN PRN IV/SQ PAIN GREATER THAN 3/10; Start 10/04/19 at 23:15; Stop 10/05/19 at 00:40; Status DC Hydromorphone HCl (Dilaudid) 1 mg 1X ONCE IV Last administered on 10/05/19at 01:02; Start 10/05/19 at 00:30; Stop 10/05/19 at 00:31; Status DC Ondansetron HCl (Zofran) 4 mg 1X ONCE IVP Last administered on 10/05/19at 00:58; Start 10/05/19 at 01:00; Stop 10/05/19 at 01:01; Status DC Barium Sulfate (Readi-Cat 2) 900 ml STK-MED ONCE .ROUTE ; Start 10/04/19 at 02:23; Stop 10/05/19 at 02:23; Status DC Hydromorphone HCl (Dilaudid) 1 mg 1X ONCE IV Last administered on 10/05/19at 03:53; Start 10/05/19 at 03:45; Stop 10/05/19 at 03:46; Status DC Sodium Chloride 1,000 ml @ 125 mls/hr 1X ONCE IV Last administered on 10/05/19at 04:00; Start 10/05/19 at 04:00; Stop 10/05/19 at 11:59; Status DC Ondansetron HCl (Zofran) 4 mg PRN Q8HRS PRN IV NAUSEA/VOMITING Last administered on 10/05/19at 08:58; Start 10/05/19 at 04:45; Stop 10/06/19 at 04:44 Morphine Sulfate (Morphine Sulfate) 4 mg PRN Q2HR PRN IV PAIN Last administered on 10/05/19at 14:18; Start 10/05/19 at 04:45; Stop 10/06/19 at 04:44 Amino Acids/ Glycerin/ Electrolytes 1,000 ml @ 80 mls/hr [id number] IV Last administered on 10/05/19at 11:17; Start 10/05/19 at 11:00 Amlodipine Besylate (Norvasc) 5 mg DAILY PO ; Start 10/05/19 at 15:00 Aspirin (Ecotrin) 81 mg DAILY PO ; Start 10/05/19 at 15:00 Atorvastatin Calcium (Lipitor) 20 mg DAILY PO ; Start 10/05/19 at 15:00 Cetirizine HCl (ZyrTEC) 10 mg DAILY PO ; Start 10/05/19 at 15:00 Docusate Sodium (Colace) 100 mg DAILY PO ; Start 10/05/19 at 15:00 Ferrous Sulfate (Feosol) 325 mg DAILY PO ; Start 10/05/19 at 15:00 Metformin HCl (Glucophage) 500 mg BIDWMEALS PO ; Start 10/05/19 at 17:00 Trazodone HCl (Desyrel) 50 mg PRN QHS PRN PO sleep; Start 10/05/19 at 14:15 Vitamin D (Vitamin D3) 10,000 unit BID PO ; Start 10/05/19 at 21:00 Non-Formulary Medication (Cinnamon Bark (Cinnamon)) 1,000 mg DAILY PO ; Start 10/06/19 at 09:00; Status UNV Cyanocobalamin (Vitamin B-12) 1,000 mcg DAILY PO ; Start 10/05/19 at 15:00 Citalopram Hydrobromide (CeleXA) 40 mg DAILY PO ; Start 10/05/19 at 15:00 Fluticasone Propionate (Flonase) 2 spray DAILY NS ; Start 10/05/19 at 15:00 Lactobacillus Rhamnosus (Culturelle) 1 cap DAILY PO ; Start 10/05/19 at 15:00 Losartan Potassium (Cozaar) 100 mg DAILY PO ; Start 10/05/19 at 15:00 Magnesium Oxide (Magnesium Oxide) 400 mg DAILY PO ; Start 10/05/19 at 15:00 Multivitamins (Thera M Plus) 1 tab DAILY PO ; Start 10/05/19 at 15:00 Fish Oil (Fish Oil) 2,000 mg BID PO ; Start 10/05/19 at 21:00 Pantoprazole Sodium (Protonix) 40 mg DAILYAC PO ; Start 10/05/19 at 15:00 Hydrochlorothiazide (Hydrodiuril) 25 mg DAILY PO ; Start 10/05/19 at 15:00 Active Scripts Active Reported Iron (Ferrous Sulfate) 325 Mg Tablet 1 Tab PO DAILY 30 Days Escitalopram Oxalate 20 Mg Tablet 1 Tab PO DAILY Probiotic (L.acidoph & Paracasei,B.lactis) 1 Each Capsule 1 Cap PO DAILY 10 Days Cinnamon (Cinnamon Bark) 500 Mg Capsule 1,000 Mg PO DAILY Docusate Sodium 100 Mg Capsule 1 Cap PO DAILY 30 Days Zyrtec (Cetirizine Hcl) 10 Mg Tablet 10 Mg PO DAILY Magnesium Oxide 250 Mg Tablet 250 Mg PO DAILY Multiple Vitamins (Multivitamin) 1 Each Tablet 1 Tab PO DAILY 30 Days Vitamin B12 (Cyanocobalamin (Vitamin B-12)) 2,500 Mcg Tablet 1,000 Mcg PO DAILY Vitamin D3 (Cholecalciferol (Vitamin D3)) 4,000 Unit Capsule 10,000 Unit PO BID Trazodone Hcl 50 Mg Tablet 1 Tab PO PRN QHS PRN Ondansetron Odt (Ondansetron) 4 Mg Tab.rapdis 1 Tab PO PRN Q6-8HRS Omeprazole 20 Mg Tablet.dr 1 Tab PO BID Metformin Hcl 500 Mg Tablet 500 Mg PO BIDWMEALS Losartan-Hctz 100-25 Mg Tab (Losartan/Hydrochlorothiazide) 1 Each Tablet 1 Tab PO DAILY Flonase Allergy Relief (Fluticasone Propionate) 9.[address]susp 2 Sprays NS DAILY Amlodipine Besylate 5 Mg Tablet 5 Mg PO DAILY Aspir-Low (Aspirin) 81 Mg Tablet.dr 1 Tab PO DAILY Fish Oil Conc 1,000 mg Softgel ([place]-3/Dha/Epa/Fish Oil) 1,000 Mg Capsule 2,000 Mg PO BID Atorvastatin Calcium 20 Mg Tablet 1 Tab PO DAILY Allergies Allergies: Coded Allergies: shellfish derived (Verified Allergy, Severe, Shortness of Air, 06/26/19) throat swells Iodine and Iodide Containing Produc (Verified Allergy, Intermediate, Hives, 06/26/19) Penicillins (Verified Allergy, Intermediate, Unknown, 06/23/19) I was 6 months old and had a reaction ROS Gastrointestinal: Yes Abdominal Pain Physical Exam General: Alert, Oriented X3, Cooperative, mild distress, Other (NGT aspirate appears to be clearing) HEENT: Atraumatic Lungs: Normal air movement Abdomen: Soft, No tenderness, Other (obese) Extremities: No clubbing, No cyanosis Skin: No rashes, No breakdown Neuro: Normal speech, Sensation intact Psych/Mental Status: Mental status NL, Mood NL Vitals VITALS Vital Signs Date Time Temp Pulse Resp B/P (MAP) Pulse Ox O2 Delivery O2 Flow Rate FiO2 10/05/19 14:18 Room Air 10/05/19 10:56 97.5 87 18 143/86 (105) 94 97.5 Labs Labs Laboratory Tests Test 10/04/19 23:24 10/05/19 04:59 White Blood Count 8.7 x10^3/uL (4.0-11.0) Red Blood Count 5.42 x10^6/uL (4.30-5.70) Hemoglobin 16.1 g/dL (13.0-17.5) Hematocrit 47.7 % (39.0-53.0) Mean Corpuscular Volume 88 fL (79-100) Mean Corpuscular Hemoglobin 30 pg (25-35) Mean Corpuscular Hemoglobin Concent 34 g/dL (31-37) Red Cell Distribution Width 15.9 % (11.5-14.5) Platelet Count 230 x10^3/uL (140-400) Neutrophils (%) (Auto) 79 % (31-73) Lymphocytes (%) (Auto) 13 % (24-48) Monocytes (%) (Auto) 7 % (0-9) Eosinophils (%) (Auto) 1 % (0-3) Basophils (%) (Auto) 0 % (0-3) Neutrophils # (Auto) 6.9 x10^3/uL (1.8-7.7) Lymphocytes # (Auto) 1.1 x10^3/uL (1.0-4.8) Monocytes # (Auto) 0.6 x10^3/uL (0.0-1.1) Eosinophils # (Auto) 0.0 x10^3/uL (0.0-0.7) Basophils # (Auto) 0.0 x10^3/uL (0.0-0.2) Prothrombin Time 12.5 SEC (11.7-14.0) Prothromb Time International Ratio 1.0 (0.8-1.1) Activated Partial Thromboplast Time 30 SEC (24-38) Sodium Level 137 mmol/L (136-145) Potassium Level 3.5 mmol/L (3.5-5.1) Chloride Level 99 mmol/L (98-107) Carbon Dioxide Level 26 mmol/L (21-32) Anion Gap 12 (6-14) Blood Urea Nitrogen 14 mg/dL (8-26) Creatinine 0.8 mg/dL (0.7-1.3) Estimated GFR (Cockcroft-Gault) 99.6 Glucose Level 110 mg/dL (70-99) Calcium Level 9.4 mg/dL (8.5-10.1) Total Bilirubin 0.4 mg/dL (0.2-1.0) Direct Bilirubin 0.1 mg/dL (0.0-0.2) Aspartate Amino Transf (AST/SGOT) 17 U/L (15-37) Alanine Aminotransferase (ALT/SGPT) 36 U/L (16-63) Alkaline Phosphatase 86 U/L (46-116) Creatine Kinase 116 U/L (39-308) Total Protein 7.7 g/dL (6.4-8.2) Albumin 3.9 g/dL (3.4-5.0) Lipase 118 U/L (73-393) Lactic Acid Level 0.7 mmol/L (0.4-2.0) Laboratory Tests Test 10/04/19 23:24 10/05/19 04:59 White Blood Count 8.7 x10^3/uL (4.0-11.0) Red Blood Count 5.42 x10^6/uL (4.30-5.70) Hemoglobin 16.1 g/dL (13.0-17.5) Hematocrit 47.7 % (39.0-53.0) Mean Corpuscular Volume 88 fL (79-100) Mean Corpuscular Hemoglobin 30 pg (25-35) Mean Corpuscular Hemoglobin Concent 34 g/dL (31-37) Red Cell Distribution Width 15.9 % (11.5-14.5) Platelet Count 230 x10^3/uL (140-400) Neutrophils (%) (Auto) 79 % (31-73) Lymphocytes (%) (Auto) 13 % (24-48) Monocytes (%) (Auto) 7 % (0-9) Eosinophils (%) (Auto) 1 % (0-3) Basophils (%) (Auto) 0 % (0-3) Neutrophils # (Auto) 6.9 x10^3/uL (1.8-7.7) Lymphocytes # (Auto) 1.1 x10^3/uL (1.0-4.8) Monocytes # (Auto) 0.6 x10^3/uL (0.0-1.1) Eosinophils # (Auto) 0.0 x10^3/uL (0.0-0.7) Basophils # (Auto) 0.0 x10^3/uL (0.0-0.2) Prothrombin Time 12.5 SEC (11.7-14.0) Prothromb Time International Ratio 1.0 (0.8-1.1) Activated Partial Thromboplast Time 30 SEC (24-38) Sodium Level 137 mmol/L (136-145) Potassium Level 3.5 mmol/L (3.5-5.1) Chloride Level 99 mmol/L (98-107) Carbon Dioxide Level 26 mmol/L (21-32) Anion Gap 12 (6-14) Blood Urea Nitrogen 14 mg/dL (8-26) Creatinine 0.8 mg/dL (0.7-1.3) Estimated GFR (Cockcroft-Gault) 99.6 Glucose Level 110 mg/dL (70-99) Calcium Level 9.4 mg/dL (8.5-10.1) Total Bilirubin 0.4 mg/dL (0.2-1.0) Direct Bilirubin 0.1 mg/dL (0.0-0.2) Aspartate Amino Transf (AST/SGOT) 17 U/L (15-37) Alanine Aminotransferase (ALT/SGPT) 36 U/L (16-63) Alkaline Phosphatase 86 U/L (46-116) Creatine Kinase 116 U/L (39-308) Total Protein 7.7 g/dL (6.4-8.2) Albumin 3.9 g/dL (3.4-5.0) Lipase 118 U/L (73-393) Lactic Acid Level 0.7 mmol/L (0.4-2.0) Images Images CT c/w SBO, may also by bony lesions Assessment/Plan Assessment/Plan SBO agree with NGT and bowel rest. Will check KUB in AM. If not improved, will consider SBFT. Concern would be adhesions versus further lymphoma. Thanks for consult! GAVIN SCALES MD Oct 05, 2019 15:00
[2019-10-05] MEDS: metFORMIN 500 MG TABLET PO SCH (17:00)
[2019-10-05] MEDS ORDERED: ONDANSETRON PF 4 MG/2 ML VIAL. IVP PRN (18:15)
[2019-10-05] MEDS ORDERED: hydrALAZINE 20 MG/ML VIAL. IVP PRN (18:15)
[2019-10-05 19:14] VITALS: BP 140/75
[2019-10-05] MEDS: OMEGA-3 FATTY ACIDS/FISH OIL 1,000 MG CAPSULE. PO SCH (19:19)
[2019-10-05] MEDS: CHOLECALCIFEROL (VITAMIN D3) 5,000 UNIT CAPSULE PO SCH (19:20)
[2019-10-05 22:59] VITALS: BP 127/84
[2019-10-06] MEDS: MORPHINE SULFATE 4 MG/ML VIAL. IV PRN (00:15)
[2019-10-06 03:00] VITALS: BP 135/74
[2019-10-06 05:36] LABS: BASO % 0 % (0-3); EOS % 1 % (0-3); HEMATOCRIT 45.2 % (39.0-53.0); LYMPH # 1.1 x10^3/uL (1.0-4.8); LYMPH % 21 % (24-48); MEAN CORPUSCULAR HEMOGLOBIN 30 pg (25-35); MEAN CORPUSCULAR HGB CONC 33 g/dL (31-37); MEAN CORPUSCULAR VOLUME 89 fL (79-100); MONO # 0.8 x10^3/uL (0.0-1.1); MONO % 15 % (0-9); NEUT # 3.3 x10^3/uL (1.8-7.7); NEUT % 63 % (31-73); PLATELET COUNT 212 x10^3/uL (140-400); RED BLOOD COUNT 5.08 x10^6/uL (4.30-5.70); RED CELL DISTRIBUTION WIDTH 15.6 % (11.5-14.5); WHITE BLOOD COUNT 5.2 x10^3/uL (4.0-11.0)
[2019-10-06 05:44] LABS: CALCIUM 8.8 mg/dL (8.5-10.1); CREATININE 0.8 mg/dL (0.7-1.3); GFR 99.6; POTASSIUM 3.9 mmol/L (3.5-5.1)
[2019-10-06 07:00] VITALS: BP 137/84
[2019-10-06] MEDS: PANTOPRAZOLE 40 MG TABLET.DR. PO SCH (07:30)
[2019-10-06] MEDS: metFORMIN 500 MG TABLET PO SCH ×2 (08:00→17:00)
[2019-10-06] MEDS: FLUTICASONE 50MCG/NASAL SPRAY 16GM BOTTLE. NS SCH (08:40)
[2019-10-06] MEDS: LACTOBACILLUS RHAMNOSUS GG 1 CAPSULE. PO SCH (08:40)
[2019-10-06] MEDS: DOCUSATE SODIUM 100 MG CAPSULE. PO SCH (08:40)
[2019-10-06] MEDS: FERROUS SULFATE 325 MG TABLET. PO SCH (08:40)
[2019-10-06] MEDS: CITALOPRAM 20 MG TABLET. PO SCH (08:40)
[2019-10-06] MEDS: ASPIRIN ENTERIC COATED 81 MG TABLET.DR. PO SCH (08:40)
[2019-10-06] MEDS: LOSARTAN POTASSIUM 50 MG TABLET. PO SCH (08:40)
[2019-10-06] MEDS: ATORVASTATIN CALCIUM 20 MG TABLET PO SCH (08:41)
[2019-10-06] MEDS: OMEGA-3 FATTY ACIDS/FISH OIL 1,000 MG CAPSULE. PO SCH ×2 (08:41→20:59)
[2019-10-06] MEDS: amLODIPine BESYLATE 5 MG TABLET PO SCH (08:41)
[2019-10-06] MEDS: MULTIVITAMIN with MINERAL TABLET. PO SCH (08:41)
[2019-10-06] MEDS: MAGNESIUM OXIDE 400 MG TABLET PO SCH (08:41)
[2019-10-06] MEDS: CYANOCOBALAMIN (VITAMIN B-12) 1,000 MCG TABLET. PO SCH (08:41)
[2019-10-06] MEDS: CHOLECALCIFEROL (VITAMIN D3) 5,000 UNIT CAPSULE PO SCH ×2 (08:41→21:00)
[2019-10-06] MEDS: CETIRIZINE HCL 10 MG TABLET. PO SCH (08:41)
[2019-10-06] MEDS: hydroCHLOROthiazide 25 MG TABLET PO SCH (08:41)
[2019-10-06] MEDS ORDERED: NON FORMULARY ITEM (Cinnamon Bark (Cinnamon) 1,000 MG) PO SCH (09:00)
[2019-10-06] MEDS: AMINO AC 3%/ELECTROLYTE/GLYCER 1,000 ML IV SCH (10:29)
--- NOTE | 2019-10-06 10:56 | PDOC ---
PROGRESS NOTES Chief Complaint Chief Complaint A/P: SBO - likely from recent surgery. NGT in place, likely can clamp Depression - cont meds DM2 - insulin therapy HTN - convert meds to IV Allergies - benadryl prn HLD - statin on hold while NPO Recent partial bowel resection in 06/2019 Follicular lymphoma History of Present Illness History of Present Illness Mr Conte is a 59 yo M w/ PMHx depression, DM2, HTN, HLD, and recent partial bowel resection in 06/2019 with dx of follicular lymphoma readmitted for a small-bowel obstruction. We placed an NG tube. Consulted general surgery. Overnight had bowel movements. Still with 600cc of NGT output. He is complaining of runny nose and allergy symptoms has seasonal allergies. No CP or S OB. Vitals Vitals Vital Signs Date Time Temp Pulse Resp B/P (MAP) Pulse Ox O2 Delivery O2 Flow Rate FiO2 10/06/19 08:00 Room Air 10/06/19 07:00 97.8 79 20 137/84 (101) 94 97.8 Physical Exam General: Alert, Oriented X3, Cooperative, mild distress, Other (NGT aspirate appears to be clearing) Abdomen: Soft, No tenderness, Other (obese) Extremities: No clubbing, No cyanosis Skin: No rashes, No breakdown Labs LABS Laboratory Tests Test 10/06/19 05:10 White Blood Count 5.2 x10^3/uL (4.0-11.0) Red Blood Count 5.08 x10^6/uL (4.30-5.70) Hemoglobin 15.0 g/dL (13.0-17.5) Hematocrit 45.2 % (39.0-53.0) Mean Corpuscular Volume 89 fL (79-100) Mean Corpuscular Hemoglobin 30 pg (25-35) Mean Corpuscular Hemoglobin Concent 33 g/dL (31-37) Red Cell Distribution Width 15.6 % (11.5-14.5) Platelet Count 212 x10^3/uL (140-400) Neutrophils (%) (Auto) 63 % (31-73) Lymphocytes (%) (Auto) 21 % (24-48) Monocytes (%) (Auto) 15 % (0-9) Eosinophils (%) (Auto) 1 % (0-3) Basophils (%) (Auto) 0 % (0-3) Neutrophils # (Auto) 3.3 x10^3/uL (1.8-7.7) Lymphocytes # (Auto) 1.1 x10^3/uL (1.0-4.8) Monocytes # (Auto) 0.8 x10^3/uL (0.0-1.1) Eosinophils # (Auto) 0.0 x10^3/uL (0.0-0.7) Basophils # (Auto) 0.0 x10^3/uL (0.0-0.2) Sodium Level 139 mmol/L (136-145) Potassium Level 3.9 mmol/L (3.5-5.1) Chloride Level 102 mmol/L (98-107) Carbon Dioxide Level 31 mmol/L (21-32) Anion Gap 6 (6-14) Blood Urea Nitrogen 19 mg/dL (8-26) Creatinine 0.8 mg/dL (0.7-1.3) Estimated GFR (Cockcroft-Gault) 99.6 Glucose Level 116 mg/dL (70-99) Calcium Level 8.8 mg/dL (8.5-10.1) Comment Review of Relevant I have reviewed the following items annalisa (where applicable) has been applied. Labs Laboratory Tests Test 10/04/19 23:24 10/05/19 04:59 10/06/19 05:10 White Blood Count 8.7 x10^3/uL (4.0-11.0) 5.2 x10^3/uL (4.0-11.0) Red Blood Count 5.42 x10^6/uL (4.30-5.70) 5.08 x10^6/uL (4.30-5.70) Hemoglobin 16.1 g/dL (13.0-17.5) 15.0 g/dL (13.0-17.5) Hematocrit 47.7 % (39.0-53.0) 45.2 % (39.0-53.0) Mean Corpuscular Volume 88 fL (79-100) 89 fL (79-100) Mean Corpuscular Hemoglobin 30 pg (25-35) 30 pg (25-35) Mean Corpuscular Hemoglobin Concent 34 g/dL (31-37) 33 g/dL (31-37) Red Cell Distribution Width 15.9 % (11.5-14.5) 15.6 % (11.5-14.5) Platelet Count 230 x10^3/uL (140-400) 212 x10^3/uL (140-400) Neutrophils (%) (Auto) 79 % (31-73) 63 % (31-73) Lymphocytes (%) (Auto) 13 % (24-48) 21 % (24-48) Monocytes (%) (Auto) 7 % (0-9) 15 % (0-9) Eosinophils (%) (Auto) 1 % (0-3) 1 % (0-3) Basophils (%) (Auto) 0 % (0-3) 0 % (0-3) Neutrophils # (Auto) 6.9 x10^3/uL (1.8-7.7) 3.3 x10^3/uL (1.8-7.7) Lymphocytes # (Auto) 1.1 x10^3/uL (1.0-4.8) 1.1 x10^3/uL (1.0-4.8) Monocytes # (Auto) 0.6 x10^3/uL (0.0-1.1) 0.8 x10^3/uL (0.0-1.1) Eosinophils # (Auto) 0.0 x10^3/uL (0.0-0.7) 0.0 x10^3/uL (0.0-0.7) Basophils # (Auto) 0.0 x10^3/uL (0.0-0.2) 0.0 x10^3/uL (0.0-0.2) Prothrombin Time 12.5 SEC (11.7-14.0) Prothromb Time International Ratio 1.0 (0.8-1.1) Activated Partial Thromboplast Time 30 SEC (24-38) Sodium Level 137 mmol/L (136-145) 139 mmol/L (136-145) Potassium Level 3.5 mmol/L (3.5-5.1) 3.9 mmol/L (3.5-5.1) Chloride Level 99 mmol/L (98-107) 102 mmol/L (98-107) Carbon Dioxide Level 26 mmol/L (21-32) 31 mmol/L (21-32) Anion Gap 12 (6-14) 6 (6-14) Blood Urea Nitrogen 14 mg/dL (8-26) 19 mg/dL (8-26) Creatinine 0.8 mg/dL (0.7-1.3) 0.8 mg/dL (0.7-1.3) Estimated GFR (Cockcroft-Gault) 99.6 99.6 Glucose Level 110 mg/dL (70-99) 116 mg/dL (70-99) Calcium Level 9.4 mg/dL (8.5-10.1) 8.8 mg/dL (8.5-10.1) Total Bilirubin 0.4 mg/dL (0.2-1.0) Direct Bilirubin 0.1 mg/dL (0.0-0.2) Aspartate Amino Transf (AST/SGOT) 17 U/L (15-37) Alanine Aminotransferase (ALT/SGPT) 36 U/L (16-63) Alkaline Phosphatase 86 U/L (46-116) Creatine Kinase 116 U/L (39-308) Total Protein 7.7 g/dL (6.4-8.2) Albumin 3.9 g/dL (3.4-5.0) Lipase 118 U/L (73-393) Lactic Acid Level 0.7 mmol/L (0.4-2.0) Laboratory Tests Test 10/06/19 05:10 White Blood Count 5.2 x10^3/uL (4.0-11.0) Red Blood Count 5.08 x10^6/uL (4.30-5.70) Hemoglobin 15.0 g/dL (13.0-17.5) Hematocrit 45.2 % (39.0-53.0) Mean Corpuscular Volume 89 fL (79-100) Mean Corpuscular Hemoglobin 30 pg (25-35) Mean Corpuscular Hemoglobin Concent 33 g/dL (31-37) Red Cell Distribution Width 15.6 % (11.5-14.5) Platelet Count 212 x10^3/uL (140-400) Neutrophils (%) (Auto) 63 % (31-73) Lymphocytes (%) (Auto) 21 % (24-48) Monocytes (%) (Auto) 15 % (0-9) Eosinophils (%) (Auto) 1 % (0-3) Basophils (%) (Auto) 0 % (0-3) Neutrophils # (Auto) 3.3 x10^3/uL (1.8-7.7) Lymphocytes # (Auto) 1.1 x10^3/uL (1.0-4.8) Monocytes # (Auto) 0.8 x10^3/uL (0.0-1.1) Eosinophils # (Auto) 0.0 x10^3/uL (0.0-0.7) Basophils # (Auto) 0.0 x10^3/uL (0.0-0.2) Sodium Level 139 mmol/L (136-145) Potassium Level 3.9 mmol/L (3.5-5.1) Chloride Level 102 mmol/L (98-107) Carbon Dioxide Level 31 mmol/L (21-32) Anion Gap 6 (6-14) Blood Urea Nitrogen 19 mg/dL (8-26) Creatinine 0.8 mg/dL (0.7-1.3) Estimated GFR (Cockcroft-Gault) 99.6 Glucose Level 116 mg/dL (70-99) Calcium Level 8.8 mg/dL (8.5-10.1) Medications Current Medications Morphine Sulfate (Morphine Sulfate) 4 mg PRN Q15MIN PRN IV/SQ PAIN GREATER THAN 3/10; Start 10/04/19 at 23:15; Stop 10/05/19 at 00:40; Status DC Hydromorphone HCl (Dilaudid) 1 mg 1X ONCE IV Last administered on 10/05/19at 01:02; Start 10/05/19 at 00:30; Stop 10/05/19 at 00:31; Status DC Ondansetron HCl (Zofran) 4 mg 1X ONCE IVP Last administered on 10/05/19at 00:58; Start 10/05/19 at 01:00; Stop 10/05/19 at 01:01; Status DC Barium Sulfate (Readi-Cat 2) 900 ml STK-MED ONCE .ROUTE ; Start 10/04/19 at 02:23; Stop 10/05/19 at 02:23; Status DC Hydromorphone HCl (Dilaudid) 1 mg 1X ONCE IV Last administered on 10/05/19at 0 3:53; Start 10/05/19 at 03:45; Stop 10/05/19 at 03:46; Status DC Sodium Chloride 1,000 ml @ 125 mls/hr 1X ONCE IV Last administered on 10/05/19at 04:00; Start 10/05/19 at 04:00; Stop 10/05/19 at 11:59; Status DC Ondansetron HCl (Zofran) 4 mg PRN Q8HRS PRN IV NAUSEA/VOMITING Last administered on 10/05/19at 08:58; Start 10/05/19 at 04:45; Stop 10/06/19 at 04:44; Status DC Morphine Sulfate (Morphine Sulfate) 4 mg PRN Q2HR PRN IV PAIN Last administered on 10/05/19at 17:24; Start 10/05/19 at 04:45; Stop 10/06/19 at 04:44; Status DC Amino Acids/ Glycerin/ Electrolytes 1,000 ml @ 80 mls/hr [id number] IV Last administered on 10/06/19at 10:29; Start 10/05/19 at 11:00 Amlodipine Besylate (Norvasc) 5 mg DAILY PO ; Start 10/05/19 at 15:00 Aspirin (Ecotrin) 81 mg DAILY PO ; Start 10/05/19 at 15:00 Atorvastatin Calcium (Lipitor) 20 mg DAILY PO ; Start 10/05/19 at 15:00 Cetirizine HCl (ZyrTEC) 10 mg DAILY PO ; Start 10/05/19 at 15:00 Docusate Sodium (Colace) 100 mg DAILY PO ; Start 10/05/19 at 15:00 Ferrous Sulfate (Feosol) 325 mg DAILY PO ; Start 10/05/19 at 15:00 Metformin HCl (Glucophage) 500 mg BIDWMEALS PO ; Start 10/05/19 at 17:00 Trazodone HCl (Desyrel) 50 mg PRN QHS PRN PO sleep; Start 10/05/19 at 14:15 Vitamin D (Vitamin D3) 10,000 unit BID PO ; Start 10/05/19 at 21:00 Non-Formulary Medication (Cinnamon Bark (Cinnamon)) 1,000 mg DAILY PO ; Start 10/06/19 at 09:00; Status UNV Cyanocobalamin (Vitamin B-12) 1,000 mcg DAILY PO ; Start 10/05/19 at 15:00 Citalopram Hydrobromide (CeleXA) 40 mg DAILY PO ; Start 10/05/19 at 15:00 Fluticasone Propionate (Flonase) 2 spray DAILY NS ; Start 10/05/19 at 15:00 Lactobacillus Rhamnosus (Culturelle) 1 cap DAILY PO ; Start 10/05/19 at 15:00 Losartan Potassium (Cozaar) 100 mg DAILY PO ; Start 10/05/19 at 15:00 Magnesium Oxide (Magnesium Oxide) 400 mg DAILY PO ; Start 10/05/19 at 15:00 Multivitamins (Thera M Plus) 1 tab DAILY PO ; Start 10/05/19 at 15:00 Fish Oil (Fish Oil) 2,000 mg BID PO ; Start 10/05/19 at 21:00 Pantoprazole Sodium (Protonix) 40 mg DAILYAC PO ; Start 10/05/19 at 15:00 Hydrochlorothiazide (Hydrodiuril) 25 mg DAILY PO ; Start 10/05/19 at 15:00 Hydralazine HCl (Apresoline Inj) 10 mg PRN Q4HRS PRN IVP ELEVATED BP, SEE COMMENTS; Start 10/05/19 at 18:15 Morphine Sulfate (Morphine Sulfate) 4 mg PRN Q2HR PRN IV PAIN Last administered on 10/06/19at 00:15; Start 10/05/19 at 18:15 Ondansetron HCl (Zofran) 4 mg PRN Q6HRS PRN IVP NAUSEA/VOMITING; Start 10/05/19 at 18:15 Active Scripts Active Reported Iron (Ferrous Sulfate) 325 Mg Tablet 1 Tab PO DAILY 30 Days Escitalopram Oxalate 20 Mg Tablet 1 Tab PO DAILY Probiotic (L.acidoph & Paracasei,B.lactis) 1 Each Capsule 1 Cap PO DAILY 10 Days Cinnamon (Cinnamon Bark) 500 Mg Capsule 1,000 Mg PO DAILY Docusate Sodium 100 Mg Capsule 1 Cap PO DAILY 30 Days Zyrtec (Cetirizine Hcl) 10 Mg Tablet 10 Mg PO DAILY Magnesium Oxide 250 Mg Tablet 250 Mg PO DAILY Multiple Vitamins (Multivitamin) 1 Each Tablet 1 Tab PO DAILY 30 Days Vitamin B12 (Cyanocobalamin (Vitamin B-12)) 2,500 Mcg Tablet 1,000 Mcg PO DAILY Vitamin D3 (Cholecalciferol (Vitamin D3)) 4,000 Unit Capsule 10,000 Unit PO BID Trazodone Hcl 50 Mg Tablet 1 Tab PO PRN QHS PRN Ondansetron Odt (Ondansetron) 4 Mg Tab.rapdis 1 Tab PO PRN Q6-8HRS Omeprazole 20 Mg Tablet. 1 Tab PO BID Metformin Hcl 500 Mg Tablet 500 Mg PO BIDWMEALS Losartan-Hctz 100-25 Mg Tab (Losartan/Hydrochlorothiazide) 1 Each Tablet 1 Tab PO DAILY Flonase Allergy Relief (Fluticasone Propionate) 9.9 Ml [place].susp 2 Sprays NS DAILY Amlodipine Besylate 5 Mg Tablet 5 Mg PO DAILY Aspir-Low (Aspirin) 81 Mg Tablet. 1 Tab PO DAILY Fish Oil Conc 1,000 mg Softgel (Burson-3/Dha/Epa/Fish Oil) 1,000 Mg Capsule 2,000 Mg PO BID Atorvastatin Calcium 20 Mg Tablet 1 Tab PO DAILY Vitals/I & O Vital Sign - Last 24 Hours 10/05/19 10/05/19 10/05/19 10/05/19 11:17 12:00 14:18 15:00 O2 Delivery Room Air Room Air Room Air Room Air 10/05/19 10/05/19 10/05/19 10/05/19 15:00 15:00 17:24 18:00 Temp 98.3 98.3 Pulse 86 86 Resp 18 B/P (MAP) 134/83 134/83 (100) Pulse Ox 92 O2 Delivery Room Air Room Air Room Air 10/05/19 10/05/19 10/05/19 10/05/19 19:14 19:15 19:26 19:56 Temp 98.1 98.1 Pulse 70 Resp 18 18 17 B/P (MAP) 140/75 (96) Pulse Ox 95 95 O2 Delivery Room Air Room Air Room Air Room Air 10/05/19 10/06/19 10/06/19 10/06/19 22:59 00:15 03:00 07:00 Temp 98.8 97.9 97.8 98.8 97.9 97.8 Pulse 97 70 79 Resp 20 16 20 20 B/P (MAP) 127/84 (98) 135/74 (94) 137/84 (101) Pulse Ox 93 93 91 94 O2 Delivery Room Air Room Air Room Air Room Air 10/06/19 08:00 O2 Delivery Room Air Intake and Output 10/05/19 10/05/19 10/06/19 15:00 23:00 07:00 Intake Total 875 ml 1000 ml Output Total 900 ml 300 ml Balance 875 ml 100 ml -300 ml KELSEA SANFORD MD Oct 06, 2019 10:56
[2019-10-06 11:00] VITALS: BP 132/83
--- NOTE | 2019-10-06 11:04 | RAD ---
3 views of the abdomen 10/06/2019 INDICATION: Small bowel obstruction. COMPARISON STUDY: CT of the abdomen and pelvis with oral contrast. 03/15/2020. FINDINGS: Patient positioning is abnormal primarily due to scoliosis. There is an enteric tube which projects over the epigastrium possibly within the distal esophagus or proximal most stomach. No gross pneumoperitoneum is identified. Dilated loops of central small bowel are seen. The contrast images through the time of CT scan from October 05, 2023 prominent throughout the colon. Some gas in the rectum. Findings may reflect focal ileus or partial small bowel obstruction. No acute osseous changes are identified. IMPRESSION: 1. Enteric tube projecting over the epigastrium possibly within the distal esophagus or proximal most stomach. 2. Dilated loops of small bowel central abdomen with overall appearance favoring focal ileus or partial obstruction. Notably contrast from prior CT scan is seen in throughout a nondilated colon. Electronically signed by: Sanjay Felix MD (10/06/2019 11:01 AM) [id number]
[2019-10-06] MEDS ORDERED: diphenhydrAMINE 50 MG/ML VIAL IVP PRN (11:45)
[2019-10-06] MEDS ORDERED: CHOLECALCIFEROL (VITAMIN D3) 5,000 UNIT CAPSULE PO SCH (11:51)
--- NOTE | 2019-10-06 12:28 | PDOC ---
BETHANY HERNANDEZ EIGHT ARM OPERATOR 10/06/19 1228: SURGICAL PROGRESS NOTE Subjective had stool, no significant pain up to br Vital Signs Vital Signs Date Time Temp Pulse Resp B/P (MAP) Pulse Ox O2 Delivery O2 Flow Rate FiO2 10/06/19 11:00 98.1 65 20 132/83 (99) 95 Room Air 98.1 I&O Intake and Output 10/06/19 07:00 Intake Total 1875 ml Output Total 1200 ml Balance 675 ml Intake IV Total 1875 ml Output Gastric Drainage Total 1200 ml # Voids 4 # Bowel Movements 2 General: Alert, Oriented X3, Cooperative HEENT: Other (ng in place) Abdomen: Soft, No tenderness Labs Laboratory Tests Test 10/04/19 23:24 10/05/19 04:59 10/06/19 05:10 White Blood Count 8.7 x10^3/uL (4.0-11.0) 5.2 x10^3/uL (4.0-11.0) Red Blood Count 5.42 x10^6/uL (4.30-5.70) 5.08 x10^6/uL (4.30-5.70) Hemoglobin 16.1 g/dL (13.0-17.5) 15.0 g/dL (13.0-17.5) Hematocrit 47.7 % (39.0-53.0) 45.2 % (39.0-53.0) Mean Corpuscular Volume 88 fL (79-100) 89 fL (79-100) Mean Corpuscular Hemoglobin 30 pg (25-35) 30 pg (25-35) Mean Corpuscular Hemoglobin Concent 34 g/dL (31-37) 33 g/dL (31-37) Red Cell Distribution Width 15.9 % (11.5-14.5) 15.6 % (11.5-14.5) Platelet Count 230 x10^3/uL (140-400) 212 x10^3/uL (140-400) Neutrophils (%) (Auto) 79 % (31-73) 63 % (31-73) Lymphocytes (%) (Auto) 13 % (24-48) 21 % (24-48) Monocytes (%) (Auto) 7 % (0-9) 15 % (0-9) Eosinophils (%) (Auto) 1 % (0-3) 1 % (0-3) Basophils (%) (Auto) 0 % (0-3) 0 % (0-3) Neutrophils # (Auto) 6.9 x10^3/uL (1.8-7.7) 3.3 x10^3/uL (1.8-7.7) Lymphocytes # (Auto) 1.1 x10^3/uL (1.0-4.8) 1.1 x10^3/uL (1.0-4.8) Monocytes # (Auto) 0.6 x10^3/uL (0.0-1.1) 0.8 x10^3/uL (0.0-1.1) Eosinophils # (Auto) 0.0 x10^3/uL (0.0-0.7) 0.0 x10^3/uL (0.0-0.7) Basophils # (Auto) 0.0 x10^3/uL (0.0-0.2) 0.0 x10^3/uL (0.0-0.2) Prothrombin Time 12.5 SEC (11.7-14.0) Prothromb Time International Ratio 1.0 (0.8-1.1) Activated Partial Thromboplast Time 30 SEC (24-38) Sodium Level 137 mmol/L (136-145) 139 mmol/L (136-145) Potassium Level 3.5 mmol/L (3.5-5.1) 3.9 mmol/L (3.5-5.1) Chloride Level 99 mmol/L (98-107) 102 mmol/L (98-107) Carbon Dioxide Level 26 mmol/L (21-32) 31 mmol/L (21-32) Anion Gap 12 (6-14) 6 (6-14) Blood Urea Nitrogen 14 mg/dL (8-26) 19 mg/dL (8-26) Creatinine 0.8 mg/dL (0.7-1.3) 0.8 mg/dL (0.7-1.3) Estimated GFR (Cockcroft-Gault) 99.6 99.6 Glucose Level 110 mg/dL (70-99) 116 mg/dL (70-99) Calcium Level 9.4 mg/dL (8.5-10.1) 8.8 mg/dL (8.5-10.1) Total Bilirubin 0.4 mg/dL (0.2-1.0) Direct Bilirubin 0.1 mg/dL (0.0-0.2) Aspartate Amino Transf (AST/SGOT) 17 U/L (15-37) Alanine Aminotransferase (ALT/SGPT) 36 U/L (16-63) Alkaline Phosphatase 86 U/L (46-116) Creatine Kinase 116 U/L (39-308) Total Protein 7.7 g/dL (6.4-8.2) Albumin 3.9 g/dL (3.4-5.0) Lipase 118 U/L (73-393) Lactic Acid Level 0.7 mmol/L (0.4-2.0) Laboratory Tests Test 10/06/19 05:10 White Blood Count 5.2 x10^3/uL (4.0-11.0) Red Blood Count 5.08 x10^6/uL (4.30-5.70) Hemoglobin 15.0 g/dL (13.0-17.5) Hematocrit 45.2 % (39.0-53.0) Mean Corpuscular Volume 89 fL (79-100) Mean Corpuscular Hemoglobin 30 pg (25-35) Mean Corpuscular Hemoglobin Concent 33 g/dL (31-37) Red Cell Distribution Width 15.6 % (11.5-14.5) Platelet Count 212 x10^3/uL (140-400) Neutrophils (%) (Auto) 63 % (31-73) Lymphocytes (%) (Auto) 21 % (24-48) Monocytes (%) (Auto) 15 % (0-9) Eosinophils (%) (Auto) 1 % (0-3) Basophils (%) (Auto) 0 % (0-3) Neutrophils # (Auto) 3.3 x10^3/uL (1.8-7.7) Lymphocytes # (Auto) 1.1 x10^3/uL (1.0-4.8) Monocytes # (Auto) 0.8 x10^3/uL (0.0-1.1) Eosinophils # (Auto) 0.0 x10^3/uL (0.0-0.7) Basophils # (Auto) 0.0 x10^3/uL (0.0-0.2) Sodium Level 139 mmol/L (136-145) Potassium Level 3.9 mmol/L (3.5-5.1) Chloride Level 102 mmol/L (98-107) Carbon Dioxide Level 31 mmol/L (21-32) Anion Gap 6 (6-14) Blood Urea Nitrogen 19 mg/dL (8-26) Creatinine 0.8 mg/dL (0.7-1.3) Estimated GFR (Cockcroft-Gault) 99.6 Glucose Level 116 mg/dL (70-99) Calcium Level 8.8 mg/dL (8.5-10.1) Assessment/Plan sbo xr improved, contrast in colon will clamp NG, remove in 6 hrs if residual low sips of clears ok Justicifation of Admission Dx: Justifications for Admission: Justification of Admission Dx: Yes Comments: SBO GAVIN SCALES MD 10/06/19 1342: SURGICAL PROGRESS NOTE Assessment/Plan Pt seen and examined. Agree with Ms. Hernandez's note Pt feels much better, pain resolved passing stools abd soft d/c NGT if tolerates and ADAT encouraged f/u with oncology for additional treatment BETHANY HERNANDEZ APRN Oct 06, 2019 12:28 GAVIN SCALES MD Oct 06, 2019 13:42
--- NOTE | 2019-10-06 14:36 | NUR ---
SS following for discharge planning. SS reviewed pt chart and discussed with pt RN. Pt is from home with spouse and is currently on room air. Per RN, pt's bowel obstruction is starting to improve. Possible discharge to home tomorrow. SS will continue to follow for discharge planning.
[2019-10-06 15:00] VITALS: BP 140/83
[2019-10-06 19:25] VITALS: BP 152/87
--- NOTE | 2019-10-06 19:28 | NUR ---
les than 5 mls residual at 1815. removed NG.
[2019-10-06] MEDS: traZODone 50 MG TABLET. PO PRN (20:59)
[2019-10-06 23:40] VITALS: BP 136/85
[2019-10-07 03:25] VITALS: BP 136/79
[2019-10-07 07:00] VITALS: BP 137/87
[2019-10-07] MEDS: metFORMIN 500 MG TABLET PO SCH ×2 (08:00→17:34)
--- NOTE | 2019-10-07 08:42 | PDOC ---
PROGRESS NOTES Chief Complaint Chief Complaint A/P: SBO - likely from recent surgery. ADAT Depression - cont meds DM2 - insulin therapy HTN - convert meds to IV Allergies - benadryl prn HLD - statin on hold while NPO Recent partial bowel resection in 06/2019 Follicular lymphoma FEN - ADAT PPX - lovenox FULL CODE Dispo - inpatient, likely d/c home in 24-48 hours with surgery follow up History of Present Illness History of Present Illness Mr Conte is a 59 yo M w/ PMHx depression, DM2, HTN, HLD, and recent partial bowel resection in 06/2019 with dx of follicular lymphoma readmitted for a small-bowel obstruction. We placed an NG tube. Consulted general surgery. 10/05: Overnight had bowel movements. Still with 600cc of NGT output. He is complaining of runny nose and allergy symptoms has seasonal allergies. No CP or SOB. NGT clamped overnight. Afebrile, abdominal pain nearly resolved. No CP or S OB. Still having bowel movement passing flatus. Eating ice chips and water with no pain. Vitals Vitals Vital Signs Date Time Temp Pulse Resp B/P (MAP) Pulse Ox O2 Delivery O2 Flow Rate FiO2 10/07/19 03:25 98.3 59 20 136/79 (98) 95 Room Air 98.3 Physical Exam General: Alert, Oriented X3, Cooperative Abdomen: Soft, No tenderness Extremities: No clubbing, No cyanosis Skin: No rashes, No breakdown Comment Review of Relevant I have reviewed the following items annalisa (where applicable) has been applied. Labs Laboratory Tests Test 10/06/19 05:10 White Blood Count 5.2 x10^3/uL (4.0-11.0) Red Blood Count 5.08 x10^6/uL (4.30-5.70) Hemoglobin 15.0 g/dL (13.0-17.5) Hematocrit 45.2 % (39.0-53.0) Mean Corpuscular Volume 89 fL (79-100) Mean Corpuscular Hemoglobin 30 pg (25-35) Mean Corpuscular Hemoglobin Concent 33 g/dL (31-37) Red Cell Distribution Width 15.6 % (11.5-14.5) Platelet Count 212 x10^3/uL (140-400) Neutrophils (%) (Auto) 63 % (31-73) Lymphocytes (%) (Auto) 21 % (24-48) Monocytes (%) (Auto) 15 % (0-9) Eosinophils (%) (Auto) 1 % (0-3) Basophils (%) (Auto) 0 % (0-3) Neutrophils # (Auto) 3.3 x10^3/uL (1.8-7.7) Lymphocytes # (Auto) 1.1 x10^3/uL (1.0-4.8) Monocytes # (Auto) 0.8 x10^3/uL (0.0-1.1) Eosinophils # (Auto) 0.0 x10^3/uL (0.0-0.7) Basophils # (Auto) 0.0 x10^3/uL (0.0-0.2) Sodium Level 139 mmol/L (136-145) Potassium Level 3.9 mmol/L (3.5-5.1) Chloride Level 102 mmol/L (98-107) Carbon Dioxide Level 31 mmol/L (21-32) Anion Gap 6 (6-14) Blood Urea Nitrogen 19 mg/dL (8-26) Creatinine 0.8 mg/dL (0.7-1.3) Estimated GFR (Cockcroft-Gault) 99.6 Glucose Level 116 mg/dL (70-99) Calcium Level 8.8 mg/dL (8.5-10.1) Medications Current Medications Morphine Sulfate (Morphine Sulfate) 4 mg PRN Q15MIN PRN IV/SQ PAIN GREATER THAN 3/10; Start 10/04/19 at 23:15; Stop 10/05/19 at 00:40; Status DC Hydromorphone HCl (Dilaudid) 1 mg 1X ONCE IV Last administered on 10/05/19at 01:02; Start 10/05/19 at 00:30; Stop 10/05/19 at 00:31; Status DC Ondansetron HCl (Zofran) 4 mg 1X ONCE IVP Last administered on 10/05/19at 00:58; Start 10/05/19 at 01:00; Stop 10/05/19 at 01:01; Status DC Barium Sulfate (Readi-Cat 2) 900 ml STK-MED ONCE .ROUTE ; Start 10/04/19 at 02:23; Stop 10/05/19 at 02:23; Status DC Hydromorphone HCl (Dilaudid) 1 mg 1X ONCE IV Last administered on 10/05/19at 03:53; Start 10/05/19 at 03:45; Stop 10/05/19 at 03:46; Status DC Sodium Chloride 1,000 ml @ 125 mls/hr 1X ONCE IV Last administered on 10/05/19at 04:00; Start 10/05/19 at 04:00; Stop 10/05/19 at 11:59; Status DC Ondansetron HCl (Zofran) 4 mg PRN Q8HRS PRN IV NAUSEA/VOMITING Last administered on 10/05/19at 08:58; Start 10/05/19 at 04:45; Stop 10/06/19 at 04:44; Status DC Morphine Sulfate (Morphine Sulfate) 4 mg PRN Q2HR PRN IV PAIN Last administered on 10/05/19at 17:24; Start 10/05/19 at 04:45; Stop 10/06/19 at 04:44; Status DC Amino Acids/ Glycerin/ Electrolytes 1,000 ml @ 80 mls/hr [id number] IV Last administered on 10/06/19at 10:29; Start 10/05/19 at 11:00; Stop 10/06/19 at 19:37; Status DC Amlodipine Besylate (Norvasc) 5 mg DAILY PO ; Start 10/05/19 at 15:00 Aspirin (Ecotrin) 81 mg DAILY PO ; Start 10/05/19 at 15:00 Atorvastatin Calcium (Lipitor) 20 mg DAILY PO ; Start 10/05/19 at 15:00 Cetirizine HCl (ZyrTEC) 10 mg DAILY PO ; Start 10/05/19 at 15:00 Docusate Sodium (Colace) 100 mg DAILY PO ; Start 10/05/19 at 15:00 Ferrous Sulfate (Feosol) 325 mg DAILY PO ; Start 10/05/19 at 15:00 Metformin HCl (Glucophage) 500 mg BIDWMEALS PO ; Start 10/05/19 at 17:00 Trazodone HCl (Desyrel) 50 mg PRN QHS PRN PO sleep Last administered on 10/06/19at 20:59; Start 10/05/19 at 14:15 Vitamin D (Vitamin D3) 10,000 unit BID PO Last administered on 10/06/19at 21:00; Start 10/05/19 at 21:00 Non-Formulary Medication (Cinnamon Bark (Cinnamon)) 1,000 mg DAILY PO ; Start 10/06/19 at 09:00; Status UNV Cyanocobalamin (Vitamin B-12) 1,000 mcg DAILY PO ; Start 10/05/19 at 15:00 Citalopram Hydrobromide (CeleXA) 40 mg DAILY PO ; Start 10/05/19 at 15:00 Fluticasone Propionate (Flonase) 2 spray DAILY NS ; Start 10/05/19 at 15:00 Lactobacillus Rhamnosus (Culturelle) 1 cap DAILY PO ; Start 10/05/19 at 15:00 Losartan Potassium (Cozaar) 100 mg DAILY PO ; Start 10/05/19 at 15:00 Magnesium Oxide (Magnesium Oxide) 400 mg DAILY PO ; Start 10/05/19 at 15:00 Multivitamins (Thera M Plus) 1 tab DAILY PO ; Start 10/05/19 at 15:00 Fish Oil (Fish Oil) 2,000 mg BID PO Last administered on 10/06/19at 20:59; Star t 10/05/19 at 21:00 Pantoprazole Sodium (Protonix) 40 mg DAILYAC PO ; Start 10/05/19 at 15:00 Hydrochlorothiazide (Hydrodiuril) 25 mg DAILY PO ; Start 10/05/19 at 15:00 Hydralazine HCl (Apresoline Inj) 10 mg PRN Q4HRS PRN IVP ELEVATED BP, SEE COMMENTS; Start 10/05/19 at 18:15 Morphine Sulfate (Morphine Sulfate) 4 mg PRN Q2HR PRN IV PAIN Last administered on 10/06/19at 00:15; Start 10/05/19 at 18:15 Ondansetron HCl (Zofran) 4 mg PRN Q6HRS PRN IVP NAUSEA/VOMITING; Start 10/05/19 at 18:15 Diphenhydramine HCl (Benadryl) 25 mg PRN Q6HRS PRN IVP ITCHING Last administered on 10/06/19at 11:45; Start 10/06/19 at 11:45 Vitamin D (Vitamin D3) 10,000 unit BID PO ; Start 10/06/19 at 11:51; Status Cancel Active Scripts Active Reported Iron (Ferrous Sulfate) 325 Mg Tablet 1 Tab PO DAILY 30 Days Escitalopram Oxalate 20 Mg Tablet 1 Tab PO DAILY Probiotic (L.acidoph & Paracasei,B.lactis) 1 Each Capsule 1 Cap PO DAILY 10 Days Cinnamon (Cinnamon Bark) 500 Mg Capsule 1,000 Mg PO DAILY Docusate Sodium 100 Mg Capsule 1 Cap PO DAILY 30 Days Zyrtec (Cetirizine Hcl) 10 Mg Tablet 10 Mg PO DAILY Magnesium Oxide 250 Mg Tablet 250 Mg PO DAILY Multiple Vitamins (Multivitamin) 1 Each Tablet 1 Tab PO DAILY 30 Days Vitamin B12 (Cyanocobalamin (Vitamin B-12)) 2,500 Mcg Tablet 1,000 Mcg PO DAILY Vitamin D3 (Cholecalciferol (Vitamin D3)) 4,000 Unit Capsule 10,000 Unit PO BID Trazodone Hcl 50 Mg Tablet 1 Tab PO PRN QHS PRN Ondansetron Odt (Ondansetron) 4 Mg Tab.rapdis 1 Tab PO PRN Q6-8HRS Omeprazole 20 Mg Tablet.dr 1 Tab PO BID Metformin Hcl 500 Mg Tablet 500 Mg PO BIDWMEALS Losartan-Hctz 100-25 Mg Tab (Losartan/Hydrochlorothiazide) 1 Each Tablet 1 Tab PO DAILY Flonase Allergy Relief (Fluticasone Propionate) 9.9 Ml [place].susp 2 Sprays NS DAILY Amlodipine Besylate 5 Mg Tablet 5 Mg PO DAILY Aspir-Low (Aspirin) 81 Mg Tablet.dr 1 Tab PO DAILY Fish Oil Conc 1,000 mg Softgel (Mullen-3/Dha/Epa/Fish Oil) 1,000 Mg Capsule 2,000 Mg PO BID Atorvastatin Calcium 20 Mg Tablet 1 Tab PO DAILY Vitals/I & O Vital Sign - Last 24 Hours 10/06/19 10/06/19 10/06/19 10/06/19 11:00 15:00 19:25 23:40 Temp 98.1 98.1 98.2 98.2 98.1 98.1 98.2 98.2 Pulse 65 59 71 62 Resp 20 20 20 B/P (MAP) 132/83 (99) 140/83 (102) 152/87 (108) 136/85 (102) Pulse Ox 95 96 96 96 O2 Delivery Room Air Room Air Room Air Room Air 10/07/19 03:25 Temp 98.3 98.3 Pulse 59 Resp 20 B/P (MAP) 136/79 (98) Pulse Ox 95 O2 Delivery Room Air Intake and Output 10/06/19 10/06/19 10/07/19 15:00 23:00 07:00 Intake Total 1080 ml 240 ml Output Total 350 ml 0 ml Balance -350 ml 1080 ml 240 ml KELSEA SANFORD MD Oct 07, 2019 08:42
[2019-10-07] MEDS: OMEGA-3 FATTY ACIDS/FISH OIL 1,000 MG CAPSULE. PO SCH ×2 (08:53→20:55)
[2019-10-07] MEDS: MULTIVITAMIN with MINERAL TABLET. PO SCH (08:53)
[2019-10-07] MEDS: ASPIRIN ENTERIC COATED 81 MG TABLET.DR. PO SCH (08:54)
[2019-10-07] MEDS: DOCUSATE SODIUM 100 MG CAPSULE. PO SCH (08:54)
[2019-10-07] MEDS: LACTOBACILLUS RHAMNOSUS GG 1 CAPSULE. PO SCH (08:54)
[2019-10-07] MEDS: CYANOCOBALAMIN (VITAMIN B-12) 1,000 MCG TABLET. PO SCH (08:54)
[2019-10-07] MEDS: MAGNESIUM OXIDE 400 MG TABLET PO SCH (08:55)
[2019-10-07] MEDS: PANTOPRAZOLE 40 MG TABLET.DR. PO SCH (08:55)
[2019-10-07] MEDS: CETIRIZINE HCL 10 MG TABLET. PO SCH (08:55)
[2019-10-07] MEDS: CITALOPRAM 20 MG TABLET. PO SCH (08:55)
[2019-10-07] MEDS: hydroCHLOROthiazide 25 MG TABLET PO SCH (08:56)
[2019-10-07] MEDS: ATORVASTATIN CALCIUM 20 MG TABLET PO SCH (08:56)
[2019-10-07] MEDS: amLODIPine BESYLATE 5 MG TABLET PO SCH (08:57)
[2019-10-07] MEDS: CHOLECALCIFEROL (VITAMIN D3) 5,000 UNIT CAPSULE PO SCH ×2 (09:00→20:55)
[2019-10-07] MEDS: FERROUS SULFATE 325 MG TABLET. PO SCH (09:00)
--- NOTE | 2019-10-07 09:36 | PDOC ---
BETHANY HERNANDEZ WEATHERIZATION OPERATIONS MANAGER 10/07/19 0936: SURGICAL PROGRESS NOTE Subjective tolerating clears + flatus and stool no pain no nausea Vital Signs Vital Signs Date Time Temp Pulse Resp B/P (MAP) Pulse Ox O2 Delivery O2 Flow Rate FiO2 10/07/19 08:57 58 137/87 10/07/19 03:25 98.3 20 95 Room Air 98.3 I&O Intake and Output 10/07/19 07:00 Intake Total 1320 ml Output Total 350 ml Balance 970 ml Intake Oral 360 ml IV Total 960 ml Output Gastric Drainage Total 350 ml General: Alert, Oriented X3, Cooperative Abdomen: Normal bowel sounds, Soft, No tenderness Labs Laboratory Tests Test 10/06/19 05:10 White Blood Count 5.2 x10^3/uL (4.0-11.0) Red Blood Count 5.08 x10^6/uL (4.30-5.70) Hemoglobin 15.0 g/dL (13.0-17.5) Hematocrit 45.2 % (39.0-53.0) Mean Corpuscular Volume 89 fL (79-100) Mean Corpuscular Hemoglobin 30 pg (25-35) Mean Corpuscular Hemoglobin Concent 33 g/dL (31-37) Red Cell Distribution Width 15.6 % (11.5-14.5) Platelet Count 212 x10^3/uL (140-400) Neutrophils (%) (Auto) 63 % (31-73) Lymphocytes (%) (Auto) 21 % (24-48) Monocytes (%) (Auto) 15 % (0-9) Eosinophils (%) (Auto) 1 % (0-3) Basophils (%) (Auto) 0 % (0-3) Neutrophils # (Auto) 3.3 x10^3/uL (1.8-7.7) Lymphocytes # (Auto) 1.1 x10^3/uL (1.0-4.8) Monocytes # (Auto) 0.8 x10^3/uL (0.0-1.1) Eosinophils # (Auto) 0.0 x10^3/uL (0.0-0.7) Basophils # (Auto) 0.0 x10^3/uL (0.0-0.2) Sodium Level 139 mmol/L (136-145) Potassium Level 3.9 mmol/L (3.5-5.1) Chloride Level 102 mmol/L (98-107) Carbon Dioxide Level 31 mmol/L (21-32) Anion Gap 6 (6-14) Blood Urea Nitrogen 19 mg/dL (8-26) Creatinine 0.8 mg/dL (0.7-1.3) Estimated GFR (Cockcroft-Gault) 99.6 Glucose Level 116 mg/dL (70-99) Calcium Level 8.8 mg/dL (8.5-10.1) Assessment/Plan advance diet Justicifation of Admission Dx: Justifications for Admission: Justification of Admission Dx: Yes TREVON MONTENEGRO MD 10/07/19 0947: SURGICAL PROGRESS NOTE Assessment/Plan Patient appears to be improving tolerating clear liquids benign abdomen agree with Miya assessment and plan advance diet as tolerated BETHANY HERNANDEZ APRN Oct 07, 2019 09:36 TREVON MONTENEGRO MD Oct 07, 2019 09:47
[2019-10-07 11:00] VITALS: BP 135/86
[2019-10-07] MEDS: FLUTICASONE 50MCG/NASAL SPRAY 16GM BOTTLE. NS SCH (12:01)
[2019-10-07] MEDS: LOSARTAN POTASSIUM 50 MG TABLET. PO SCH (12:02)
[2019-10-07 15:00] VITALS: BP 121/65
[2019-10-07 19:25] VITALS: BP 115/67
[2019-10-07] MEDS: traZODone 50 MG TABLET. PO PRN (20:56)
[2019-10-07 22:45] VITALS: BP 128/71
[2019-10-08 03:35] VITALS: BP 129/87
[2019-10-08 07:00] VITALS: BP 119/71
--- NOTE | 2019-10-08 08:19 | PDOC ---
PROGRESS NOTES Chief Complaint Chief Complaint A/P: SBO - likely from recent surgery. ADAT Depression - cont meds DM2 - insulin therapy HTN - convert meds to IV Allergies - benadryl prn HLD - statin on hold while NPO Recent partial bowel resection in 06/2019 Follicular lymphoma FEN - ADAT PPX - lovenox FULL CODE Dispo - inpatient, likely d/c home in 24-48 hours with surgery follow up History of Present Illness History of Present Illness Mr Conte is a 59 yo M w/ PMHx depression, DM2, HTN, HLD, and recent partial bowel resection in 06/2019 with dx of follicular lymphoma readmitted for a small-bowel obstruction. We placed an NG tube. Consulted general surgery. 10/05: Overnight had bowel movements. Still with 600cc of NGT output. He is complaining of runny nose and allergy symptoms has seasonal allergies. No CP or SOB. 10/06: NGT clamped overnight. Afebrile, abdominal pain nearly resolved. No CP or S OB. Still having bowel movement passing flatus. Eating ice chips and water with no pain. Afebrile. Diet advanced overnight to GI soft. He is eating regular food, still having bowel movement, no nausea. Vitals Vitals Vital Signs Date Time Temp Pulse Resp B/P (MAP) Pulse Ox O2 Delivery O2 Flow Rate FiO2 10/08/19 08:00 Room Air 10/08/19 07:00 98.2 65 18 119/71 (87) 95 98.2 Physical Exam General: Alert, Oriented X3, Cooperative Heart: Regular rate, Normal S1, Normal S2 Lungs: Clear Abdomen: Normal bowel sounds, Soft, No tenderness Extremities: No clubbing, No cyanosis Skin: No rashes, No breakdown Comment Review of Relevant I have reviewed the following items annalisa (where applicable) has been applied. Medications Current Medications Morphine Sulfate (Morphine Sulfate) 4 mg PRN Q15MIN PRN IV/SQ PAIN GREATER THAN 3/10; Start 10/04/19 at 23:15; Stop 10/05/19 at 00:40; Status DC Hydromorphone HCl (Dilaudid) 1 mg 1X ONCE IV Last administered on 10/05/19at 01:02; Start 10/05/19 at 00:30; Stop 10/05/19 at 00:31; Status DC Ondansetron HCl (Zofran) 4 mg 1X ONCE IVP Last administered on 10/05/19at 00:58; Start 10/05/19 at 01:00; Stop 10/05/19 at 01:01; Status DC Barium Sulfate (Readi-Cat 2) 900 ml STK-MED ONCE .ROUTE ; Start 10/04/19 at 02 :23; Stop 10/05/19 at 02:23; Status DC Hydromorphone HCl (Dilaudid) 1 mg 1X ONCE IV Last administered on 10/05/19at 03:53; Start 10/05/19 at 03:45; Stop 10/05/19 at 03:46; Status DC Sodium Chloride 1,000 ml @ 125 mls/hr 1X ONCE IV Last administered on 10/05/19at 04:00; Start 10/05/19 at 04:00; Stop 10/05/19 at 11:59; Status DC Ondansetron HCl (Zofran) 4 mg PRN Q8HRS PRN IV NAUSEA/VOMITING Last administered on 10/05/19at 08:58; Start 10/05/19 at 04:45; Stop 10/06/19 at 04:44; Status DC Morphine Sulfate (Morphine Sulfate) 4 mg PRN Q2HR PRN IV PAIN Last administered on 10/05/19at 17:24; Start 10/05/19 at 04:45; Stop 10/06/19 at 04:44; Status DC Amino Acids/ Glycerin/ Electrolytes 1,000 ml @ 80 mls/hr [id number] IV Last administered on 10/06/19at 10:29; Start 10/05/19 at 11:00; Stop 10/06/19 at 19:37; Status DC Amlodipine Besylate (Norvasc) 5 mg DAILY PO Last administered on 10/07/19at 08:57; Start 10/05/19 at 15:00 Aspirin (Ecotrin) 81 mg DAILY PO Last administered on 10/07/19at 08:54; Start 10/05/19 at 15:00 Atorvastatin Calcium (Lipitor) 20 mg DAILY PO Last administered on 10/07/19at 08:56; Start 10/05/19 at 15:00 Cetirizine HCl (ZyrTEC) 10 mg DAILY PO Last administered on 10/07/19at 08:55; Start 10/05/19 at 15:00 Docusate Sodium (Colace) 100 mg DAILY PO Last administered on 10/07/19 08:54; Start 10/05/19 at 15:00 Ferrous Sulfate (Feosol) 325 mg DAILY PO ; Start 10/05/19 at 15:00 Metformin HCl (Glucophage) 500 mg BIDWMEALS PO Last administered on 10/07/19 17:34; Start 10/05/19 at 17:00 Trazodone HCl (Desyrel) 50 mg PRN QHS PRN PO sleep Last administered on 10/07/19 20:56; Start 10/05/19 at 14:15 Vitamin D (Vitamin D3) 10,000 unit BID PO Last administered on 10/07/19 20:55; Start 10/05/19 at 21:00 Non-Formulary Medication (Cinnamon Bark (Cinnamon)) 1,000 mg DAILY PO ; Start 10/06/19 at 09:00; Status UNV Cyanocobalamin (Vitamin B-12) 1,000 mcg DAILY PO Last administered on 10/07/19 08:54; Start 10/05/19 at 15:00 Citalopram Hydrobromide (CeleXA) 40 mg DAILY PO Last administered on 10/07/19 08:55; Start 10/05/19 at 15:00 Fluticasone Propionate (Flonase) 2 spray DAILY NS Last administered on 10/07/19 12:01; Start 10/05/19 at 15:00 Lactobacillus Rhamnosus (Culturelle) 1 cap DAILY PO Last administered on 10/07/19 08:54; Start 10/05/19 at 15:00 Losartan Potassium (Cozaar) 100 mg DAILY PO Last administered on 10/07/19 12:02; Start 10/05/19 at 15:00 Magnesium Oxide (Magnesium Oxide) 400 mg DAILY PO Last administered on 10/07/19 08:55; Start 10/05/19 at 15:00 Multivitamins (Thera M Plus) 1 tab DAILY PO Last administered on 10/07/19 08:53; Start 10/05/19 at 15:00 Fish Oil (Fish Oil) 2,000 mg BID PO Last administered on 10/07/19 20:55; Start 10/05/19 at 21:00 Pantoprazole Sodium (Protonix) 40 mg DAILYAC PO Last administered on 10/07/19at 08:55; Start 10/05/19 at 15:00 Hydrochlorothiazide (Hydrodiuril) 25 mg DAILY PO Last administered on 10/07/19at 08:56; Start 10/05/19 at 15:00 Hydralazine HCl (Apresoline Inj) 10 mg PRN Q4HRS PRN IVP ELEVATED BP, SEE COMMENTS; Start 10/05/19 at 18:15 Morphine Sulfate (Morphine Sulfate) 4 mg PRN Q2HR PRN IV PAIN Last administered on 10/06/19at 00:15; Start 10/05/19 at 18:15 Ondansetron HCl (Zofran) 4 mg PRN Q6HRS PRN IVP NAUSEA/VOMITING; Start 10/05/19 at 18:15 Diphenhydramine HCl (Benadryl) 25 mg PRN Q6HRS PRN IVP ITCHING Last administered on 10/06/19at 11:45; Start 10/06/19 at 11:45 Vitamin D (Vitamin D3) 10,000 unit BID PO ; Start 10/06/19 at 11:51; Status Cancel Active Scripts Active Reported Iron (Ferrous Sulfate) 325 Mg Tablet 1 Tab PO DAILY 30 Days Escitalopram Oxalate 20 Mg Tablet 1 Tab PO DAILY Probiotic (L.acidoph & Paracasei,B.lactis) 1 Each Capsule 1 Cap PO DAILY 10 Days Cinnamon (Cinnamon Bark) 500 Mg Capsule 1,000 Mg PO DAILY Docusate Sodium 100 Mg Capsule 1 Cap PO DAILY 30 Days Zyrtec (Cetirizine Hcl) 10 Mg Tablet 10 Mg PO DAILY Magnesium Oxide 250 Mg Tablet 250 Mg PO DAILY Multiple Vitamins (Multivitamin) 1 Each Tablet 1 Tab PO DAILY 30 Days Vitamin B12 (Cyanocobalamin (Vitamin B-12)) 2,500 Mcg Tablet 1,000 Mcg PO DAILY Vitamin D3 (Cholecalciferol (Vitamin D3)) 4,000 Unit Capsule 10,000 Unit PO BID Trazodone Hcl 50 Mg Tablet 1 Tab PO PRN QHS PRN Ondansetron Odt (Ondansetron) 4 Mg Tab.rapdis 1 Tab PO PRN Q6-8HRS Omeprazole 20 Mg Tablet.dr 1 Tab PO BID Metformin Hcl 500 Mg Tablet 500 Mg PO BIDWMEALS Losartan-Hctz 100-25 Mg Tab (Losartan/Hydrochlorothiazide) 1 Each Tablet 1 Tab PO DAILY Flonase Allergy Relief (Fluticasone Propionate) 9.9 Ml [place].susp 2 Sprays NS DAILY Amlodipine Besylate 5 Mg Tablet 5 Mg PO DAILY Aspir-Low (Aspirin) 81 Mg Tablet.dr 1 Tab PO DAILY Fish Oil Conc 1,000 mg Softgel ([place]-3/Dha/Epa/Fish Oil) 1,000 Mg Capsule 2,000 Mg PO BID Atorvastatin Calcium 20 Mg Tablet 1 Tab PO DAILY Vitals/I & O Vital Sign - Last 24 Hours 10/07/19 10/07/19 10/07/19 10/07/19 08:57 11:00 12:02 15:00 Temp 98.2 98.1 98.2 98.1 Pulse 58 59 53 66 Resp 18 18 B/P (MAP) 137/87 135/86 (102) 135/86 121/65 (83) Pulse Ox 98 93 O2 Delivery Room Air Room Air 10/07/19 10/07/19 10/07/19 10/08/19 19:25 19:45 22:45 03:35 Temp 99.3 98.4 98.2 99.3 98.4 98.2 Pulse 53 59 67 Resp 20 20 18 B/P (MAP) 115/67 (83) 128/71 (90) 129/87 (101) Pulse Ox 97 95 97 O2 Delivery Room Air Room Air Room Air Room Air 10/08/19 10/08/19 07:00 08:00 Temp 98.2 98.2 Pulse 65 Resp 18 B/P (MAP) 119/71 (87) Pulse Ox 95 O2 Delivery Room Air Room Air Intake and Output 10/07/19 10/07/19 10/08/19 15:00 23:00 07:00 Intake Total 500 ml 600 ml Balance 500 ml 600 ml KELSEA SANFORD MD Oct 08, 2019 08:19
[2019-10-08] MEDS: hydroCHLOROthiazide 25 MG TABLET PO SCH (08:52)
[2019-10-08] MEDS: FERROUS SULFATE 325 MG TABLET. PO SCH (08:52)
[2019-10-08] MEDS: CYANOCOBALAMIN (VITAMIN B-12) 1,000 MCG TABLET. PO SCH (08:53)
[2019-10-08] MEDS: MAGNESIUM OXIDE 400 MG TABLET PO SCH (08:53)
[2019-10-08] MEDS: ASPIRIN ENTERIC COATED 81 MG TABLET.DR. PO SCH (08:53)
[2019-10-08] MEDS: metFORMIN 500 MG TABLET PO SCH (08:53)
[2019-10-08] MEDS: CITALOPRAM 20 MG TABLET. PO SCH (08:53)
[2019-10-08] MEDS: OMEGA-3 FATTY ACIDS/FISH OIL 1,000 MG CAPSULE. PO SCH (08:54)
[2019-10-08] MEDS: LOSARTAN POTASSIUM 50 MG TABLET. PO SCH (08:54)
[2019-10-08] MEDS: DOCUSATE SODIUM 100 MG CAPSULE. PO SCH (08:55)
[2019-10-08] MEDS: CHOLECALCIFEROL (VITAMIN D3) 5,000 UNIT CAPSULE PO SCH (08:55)
[2019-10-08] MEDS: ATORVASTATIN CALCIUM 20 MG TABLET PO SCH (08:55)
[2019-10-08] MEDS: PANTOPRAZOLE 40 MG TABLET.DR. PO SCH (08:55)
[2019-10-08] MEDS: LACTOBACILLUS RHAMNOSUS GG 1 CAPSULE. PO SCH (08:55)
[2019-10-08] MEDS: amLODIPine BESYLATE 5 MG TABLET PO SCH (08:56)
[2019-10-08] MEDS: MULTIVITAMIN with MINERAL TABLET. PO SCH (08:56)
[2019-10-08] MEDS: CETIRIZINE HCL 10 MG TABLET. PO SCH (08:56)
[2019-10-08] MEDS: FLUTICASONE 50MCG/NASAL SPRAY 16GM BOTTLE. NS SCH (08:57)
--- NOTE | 2019-10-08 09:18 | PDOC ---
BETHANY HERNANDEZ APRN 10/08/19 0918: SURGICAL PROGRESS NOTE Subjective having stools, flatus, tolerating diet no pain Vital Signs Vital Signs Date Time Temp Pulse Resp B/P (MAP) Pulse Ox O2 Delivery O2 Flow Rate FiO2 10/08/19 08:56 56 136/67 10/08/19 08:00 Room Air 10/08/19 07:00 98.2 18 95 98.2 I&O Intake and Output 10/08/19 07:00 Intake Total 1100 ml Balance 1100 ml Intake Oral 1100 ml # Voids 2 General: Alert, Oriented X3, Cooperative Abdomen: Normal bowel sounds, Soft, No tenderness Assessment/Plan improved diet as tolerated ok to dc home from surgical pov Justicifation of Admission Dx: Justifications for Admission: Justification of Admission Dx: Yes TREVON MONTENEGRO MD 10/08/19 0948: SURGICAL PROGRESS NOTE Assessment/Plan Agree with Lucien assessment and plan BETHANY HERNANDEZ APRN Oct 08, 2019 09:18 TREVON MONTENEGRO MD Oct 08, 2019 09:48
[2019-10-08 11:00] VITALS: BP 121/79
[2019-10-08] MEDS ORDERED: MONT10TA49 PO (12:35)
--- NOTE | 2019-10-08 12:38 | PDOC3 ---
Discharge Summary Visit Information Date of Admission: Oct 05, 2019 Date of Discharge: Oct 08, 2019 Admitting Diagnosis: SBO Final Diagnosis SBO Brief Hospital Course Allergies Allergies Coded Allergies Type Severity Reaction Last Updated Verified shellfish derived Allergy Severe Shortness of Air 06/26/19 Yes Iodine and Iodide Containing Produc Allergy Intermediate Hives 06/26/19 Yes Penicillins Allergy Intermediate Unknown 06/23/19 Yes Vital Signs Vital Signs Date Time Temp Pulse Resp B/P (MAP) Pulse Ox O2 Delivery O2 Flow Rate FiO2 10/08/19 11:00 98.2 84 18 121/79 (93) 96 Room Air 98.2 Brief Hospital Course Mr Conte is a 59 yo M w/ PMHx depression, DM2, HTN, HLD, and recent partial bowel resection in 06/2019 with dx of follicular lymphoma readmitted for a small-bowel obstruction. We placed an NG tube. Consulted general surgery. 10/05: Overnight had bowel movements. Still with 600cc of NGT output. He is complaining of runny nose and allergy symptoms has seasonal allergies. No CP or SOB. 10/06: NGT clamped overnight. Afebrile, abdominal pain nearly resolved. No CP or S OB. Still having bowel movement passing flatus. Eating ice chips and water with no pain. Afebrile. Diet advanced overnight to GI soft. He is eating regular food, still having bowel movement, no nausea. D/w surgery ok for discharge. Will start high fiber diet, cut back on steak, pork chops Consult: General surgery Problem list: SBO - likely from recent surgery. ADAT Depression - cont meds DM2 - insulin therapy HTN - convert meds to IV Allergies - benadryl prn HLD - statin on hold while NPO Recent partial bowel resection in 06/2019 Follicular lymphoma Greater than 30 minutes spent on d/c Discharge Information Condition at Discharge: Improved Follow Up: Weeks (1) Disposition/Orders: D/C to Home Scheduled Amlodipine Besylate (Amlodipine Besylate) 5 Mg Tablet, 5 MG PO DAILY for HTN, (Reported) Entered as Reported by: ASHELY BENTLEY on 06/23/19 1404 Last Action: Continued on 10/05/19 1414 by NIAL CASTLE Aspirin (Aspir-Low) 81 Mg Tablet.dr, 1 TAB PO DAILY for heart health, #30 Ref 3 (Reported) Entered as Reported by: ASHELY BENTLEY on 06/23/19 1404 Last Action: Continued on 10/05/191413 by NIAL CASTLE Atorvastatin Calcium (Atorvastatin Calcium) 20 Mg Tablet, 1 TAB PO DAILY for hyperlipidemia, #30 Ref 5 (Reported) Entered as Reported by: ASHELY BENTLEY on 06/23/19 1359 Last Action: Continued on 10/05/191413 by NIAL CASTLE Cetirizine Hcl (Zyrtec) 10 Mg Tablet, 10 MG PO DAILY for allergies, (Reported) Entered as Reported by: ASHELY BENTLEY on 06/23/19 141 Last Action: Continued on 10/05/191413 by NIAL CASTLE Cholecalciferol (Vitamin D3) (Vitamin D3) 4,000 Unit Capsule, 10,000 UNIT PO BID for supplement, (Reported) Entered as Reported by: ASHELY BENTLEY on 06/23/19 140 Last Action: Converted on 10/05/191413 by NIAL CASTLE Cinnamon Bark (Cinnamon) 500 Mg Capsule, 1,000 MG PO DAILY for supplement, (Reported) Entered as Reported by: ASHELY BENTLEY on 06/23/19 141 Last Action: Converted on 10/05/191413 by NIAL CASTLE Cyanocobalamin (Vitamin B-12) (Vitamin B12) 2,500 Mcg Tablet, 1,000 MCG PO DAILY for supplement, (Reported) Entered as Reported by: ASHELY BENTLEY on 06/23/19 1410 Last Action: Converted on 10/05/191413 by NIAL CASTLE Docusate Sodium (Docusate Sodium) 100 Mg Capsule, 1 CAP PO DAILY for constipation for 30 Days, #30 Ref 0 (Reported) Entered as Reported by: ASHELY BENTLEY on 06/23/19 141 Last Action: Continued on 10/05/191413 by NIAL CASTLE Escitalopram Oxalate (Escitalopram Oxalate) 20 Mg Tablet, 1 TAB PO DAILY for antidepresant, #30 Ref 5 (Reported) Entered as Reported by: ROWAN MAO on 10/05/19 1052 Last Action: Converted on 10/05/191413 by NIAL CASTLE Ferrous Sulfate (Iron) 325 Mg Tablet, 1 TAB PO DAILY for replacement for 30 Days, #30 Ref 0 (Reported) Entered as Reported by: ROWAN MAO on 10/05/19 1052 Last Action: Continued on 10/05/191413 by NIAL CASTLE Fluticasone Propionate (Flonase Allergy Relief) 9.9 Ml [place].susp, 2 SPRAYS NS DAILY for allergies, (Reported) Entered as Reported by: ASHELY BENTLEY on 06/23/191404 Last Action: Converted on 10/05/191413 by NIAL CASTLE L.acidoph & Paracasei,B.lactis (Probiotic) 1 Each Capsule, 1 CAP PO DAILY for supplement for 10 Days, #10 Ref 0 (Reported) Entered as Reported by: ASHELY BENTLEY on 06/23/191411 Last Action: Converted on 10/05/191413 by NIAL CASTLE Losartan/Hydrochlorothiazide (Losartan-Hctz 100-25 Mg Tab) 1 Each Tablet, 1 TAB PO DAILY for HTN, #30 Ref 5 (Reported) Entered as Reported by: ASHELY BENTLEY on 06/23/191405 Last Action: Converted on 10/05/191413 by NIAL CASTLE Magnesium Oxide (Magnesium Oxide) 250 Mg Tablet, 250 MG PO DAILY for supplement, (Reported) Entered as Reported by: ASHELY BENTLEY on 06/23/191409 Last Action: Converted on 10/05/191413 by NIAL CASTLE Metformin Hcl (Metformin Hcl) 500 Mg Tablet, 500 MG PO BIDWMEALS for ANTI- DIABETIC, Ref 0 (Reported) Entered as Reported by: ASHELY BENTLEY on 06/23/191405 Last Action: Continued on 10/05/191413 by NIAL CASTLE Montelukast Sodium (Montelukast Sodium Tablet ) 10 Mg Tablet, 10 MG PO HS for FOR ASTHMA for 90 Days, #90 Ref 3 Prescribed by: KELSEA SANFORD MD on 10/08/19 1235 Multivitamin (Multiple Vitamins) 1 Each Tablet, 1 TAB PO DAILY for supplement for 30 Days, #30 Ref 0 (Reported) Entered as Reported by: ASHELY BENTLEY on 06/23/191409 Last Action: Converted on 10/05/191413 by NIAL CASTBART [place]-3/Dha/Epa/Fish Oil (Fish Oil Conc 1,000 mg Softgel) 1,000 Mg Capsule, 2,000 MG PO BID for supplement, (Reported) Entered as Reported by: ASHELY BENTLEY on 06/23/19 1400 Last Action: Converted on 10/05/19 1414 by TK JONES Omeprazole (Omeprazole) 20 Mg Tablet.dr, 1 TAB PO BID for GERD, #90 Ref 1 (Reported) Entered as Reported by: ASHELY BENTLEY on 06/23/19 1407 Last Action: Converted on 10/05/19 1414 by TK JONES Ondansetron (Ondansetron Odt) 4 Mg Tab.rapdis, 1 TAB PO PRN Q6-8HRS for nausea, #16 (Reported) Entered as Reported by: ASHELY BENTLEY on 06/23/19 1407 Scheduled PRN Trazodone Hcl (Trazodone Hcl) 50 Mg Tablet, 1 TAB PO PRN QHS PRN for sleep, #30 Ref 1 (Reported) Entered as Reported by: ASHELY BENTLEY on 06/23/19 1408 Last Action: Continued on 10/05/19 141 by TK JONES Justicifation of Admission Dx: Justifications for Admission: Justification of Admission Dx: Yes KELSEA SANFODR MD Oct 08, 2019 12:38
--- NOTE | 2019-10-08 14:15 | NUR ---
Discharge Note: ROWAN YORK [address] [place] [address] Discharge instructions and discharge home medications reviewed with Patient and a copy given. All questions have been answered and understanding verbalized. The following instructions and handouts were given: discharge instructions, SBO info, high fiber info, singular info. Discontinued lines and drains: Peripheral IV intact. Patient discharged to Home or Self Care with Spouse via [facility] at 1415.
== END 2019-10-08 14:15 | disposition home or self-care (01) | DRG 389 ==
LOC: ER 22:36 → ED HOLD 10-05 04:10 → 2 NORTH 10-05 06:55
PROVIDERS: ADMIT Internal Medicine; ATTEND Internal Medicine
PROC: 0D9670Z Drainage of Stomach with Drainage Device, Via Natural or Artificial Opening (ICD-10-PCS; principal; 2019-10-05)
DX: K56.609 Unspecified intestinal obstruction, unspecified as to partial versus complete obstruction (principal); C82.90 Follicular lymphoma, unspecified, unspecified site; K57.92 Diverticulitis of intestine, part unspecified, without perforation or abscess without bleeding; E11.9 Type 2 diabetes mellitus without complications; E78.00 Pure hypercholesterolemia, unspecified; E78.5 Hyperlipidemia, unspecified; F32.9 Major depressive disorder, single episode, unspecified; I10 Essential (primary) hypertension; J30.2 Other seasonal allergic rhinitis; M41.9 Scoliosis, unspecified; Z82.49 Family history of ischemic heart disease and other diseases of the circulatory system; Z87.891 Personal history of nicotine dependence; E66.9 Obesity, unspecified; K21.9 Gastro-esophageal reflux disease without esophagitis
CPT/HCPCS: 36415; 74018; 74021; 74176; 80048; 80076; 82550; 83605; 83690; 85025; 85610; 85730; 96361; 96374; 96375; 96376; J1170; J1200; J2270; J2405; J3490; J7030; 99285-25; G0378